=== PATIENT | male | born 1925 | race Caucasian/White ===

== ENCOUNTER → 2016-07-10 | Outpatient (CLI) | payer OTHER ==
[2016-07-10 11:30] LABS: ALBUMIN 3.7 GM/DL (3.2-5.2); ALBUMIN/GLOBULIN RATIO 1.16 (1.00-1.93); BILIRUBIN,TOTAL 0.7 MG/DL (0.2-1.0); CALCIUM LEVEL 8.9 MG/DL (8.8-10.2); CREATININE FOR GFR 1.37 MG/DL (0.70-1.30); GLOMERULAR FILTRATION RATE 52.2 (>35); POTASSIUM SERUM 4.3 MEQ/L (3.5-5.1); TOTAL PROTEIN 6.9 GM/DL (6.4-8.2)
[2016-07-10 11:33] LABS: BASO % 0.3 % (0.0-1.0); EOS # 0.1 K/mm3 (0.0-0.50); EOS % 1.6 % (0.0-3.0); LARGE UNSTAINED CELL # 0.1 K/mm3 (0.0-0.4); LARGE UNSTAINED CELL % 2.2 % (0.0-4.0); LYMPH # 1.1 K/mm3 (1.5-4.5); LYMPH % 26.2 % (24.0-44.0); MEAN CORPUSCULAR HEMOGLOBIN 29.4 pg (27.0-33.0); MEAN CORPUSCULAR HGB CONC 31.3 g/dl (32.0-36.5); MEAN CORPUSCULAR VOLUME 94.1 fl (80.0-96.0); MONO # 0.3 K/mm3 (0.0-0.8); MONO % 6.8 % (0.0-5.0); NEUTROPHILS # 2.6 K/mm3 (1.8-7.7); NEUTROPHILS % 62.9 % (36.0-66.0); PLATELET COUNT, AUTOMATED 172 k/mm3 (150-450); RED CELL DISTRIBUTION WIDTH 13.6 % (11.5-14.5); WHITE BLOOD COUNT 4.2 K/mm3 (4.0-10.0)
== END ==
LOC: M WUC 08:47
PROVIDERS: ATTEND Nurse Practitioner Family
DX: N18.9 Chronic kidney disease, unspecified (principal); D63.1 Anemia in chronic kidney disease; Z23 Encounter for immunization

== ENCOUNTER 2016-08-13 17:21 | Observation (INO) | payer OTHER ==
[~2016-08-13] VITALS: Ht 170.2 cm; Wt 77.2 kg
[2016-08-13] MEDS ORDERED: PRAD150C PO (17:39)
[2016-08-13] MEDS ORDERED: NITR0.4D TD (17:39)
[2016-08-13] MEDS ORDERED: ZOCO40TA PO (17:39)
[2016-08-13] MEDS ORDERED: DIOV80TA3 PO (17:39)
[2016-08-13] MEDS ORDERED: ATEN50TA2 PO (17:39)
[2016-08-13] MEDS ORDERED: OMEP40CA2 PO (17:39)
[2016-08-13] MEDS ORDERED: VITA200015 PO (17:39)
[2016-08-13] MEDS ORDERED: OSTETAB3 PO (17:39)
[2016-08-13] MEDS ORDERED: Iron (17:39)
[2016-08-13] MEDS ORDERED: NITR4TASL SL (17:39)
[2016-08-13] MEDS ORDERED: MULT1CHW39 PO (17:39)
[2016-08-13 18:28] LABS: BASO % 0.2 % (0.0-1.0); EOS # 0.1 K/mm3 (0.0-0.50); EOS % 1.1 % (0.0-3.0); LARGE UNSTAINED CELL # 0.1 K/mm3 (0.0-0.4); LARGE UNSTAINED CELL % 1.2 % (0.0-4.0); LYMPH # 1.3 K/mm3 (1.5-4.5); LYMPH % 17.6 % (24.0-44.0); MEAN CORPUSCULAR HEMOGLOBIN 29.8 pg (27.0-33.0); MEAN CORPUSCULAR HGB CONC 31.1 g/dl (32.0-36.5); MEAN CORPUSCULAR VOLUME 95.8 fl (80.0-96.0); MONO # 0.3 K/mm3 (0.0-0.8); MONO % 4.3 % (0.0-5.0); NEUTROPHILS # 5.3 K/mm3 (1.8-7.7); NEUTROPHILS % 75.6 % (36.0-66.0); PLATELET COUNT, AUTOMATED 201 k/mm3 (150-450); RED CELL DISTRIBUTION WIDTH 14.2 % (11.5-14.5)
[2016-08-13 19:13] LABS: ALBUMIN 3.7 GM/DL (3.2-5.2); ALBUMIN/GLOBULIN RATIO 0.95 (1.00-1.93); BILIRUBIN,DIRECT 0.1 MG/DL (0.0-0.2); BILIRUBIN,TOTAL 0.4 MG/DL (0.2-1.0); CALCIUM LEVEL 8.8 MG/DL (8.8-10.2); CREATININE FOR GFR 1.3 MG/DL (0.70-1.30); GLOMERULAR FILTRATION RATE 55.5 (>35); POTASSIUM SERUM 3.9 MEQ/L (3.5-5.1); TOTAL PROTEIN 7.6 GM/DL (6.4-8.2)
[2016-08-13 20:25] LABS: INR 1.31
[2016-08-13] MEDS ORDERED: FERR325T PO (21:56)
[2016-08-13] MEDS ORDERED: VITMTA PO (21:56)
[2016-08-13] MEDS ORDERED: ACETAMINOPHEN TAB 650MG DOSE (2X325MG) PO PRN (22:00)
--- NOTE | 2016-08-13 22:01 | ER ---
DATE OF CONSULTATION: 08/13/2016 BRIEF HISTORY OF PRESENT ILLNESS: The patient is an 89-year-old frail male who has had some inguinal hernias for quite awhile now, was seen by Dr. Petersen years ago concerning these inguinal hernias and did not have operative intervention because of multiple medical issues, specifically cardiac issues. He has had some recent anemia and with this anemia, was started on iron, noticed that he became much more constipated lately and today had some significant constipation and became nauseated, had some dry heaves and had some pain in the suprapubic area. He has not had a bowel movement today. He typically has some intermittent diarrhea at times, intermittent constipation issues and "not very regulated." His past medical history is significant for a history of hypertension, history of cardiac bypass, history of cholecystectomy, history of myocardial infarction, history of gastroesophageal reflux disease, history of osteoarthritis of his knee, history of bilateral inguinal hernias, history of heart catheterization, history of cataracts. Medications include: - atenolol - vitamin D - Pradaxa - multivitamin - nitroglycerin - Nitro-Dur - omeprazole - Osteo Bi-Flex - simvastatin - valsartan - iron PHYSICAL EXAMINATION: Reveals an 89-year-old frail male who looks stated age. HEENT: Unremarkable. NECK: Supple without adenopathy. LUNGS: Clear to auscultation with a few crackles posteriorly at the bases. HEART: Regular with multiple irregular beats. ABDOMEN: Soft, nondistended, nontender. He does have a very large right inguinal hernia that I was able to reduce. After reducing it, he stated that his abdominal pain was much better, his pressure in his abdomen was much better. This was not strangulated. I am not convinced it was incarcerated per se but definitely symptomatic. His left inguinal area has stool filled colon on his CT scan, and I am able to reduce the majority of this. It does not cause him any significant pain, but it is somewhat difficult to reduce because of the amount of stool that is in the colon itself. IMPRESSION/PLAN: The patient has bilateral inguinal hernias. I anticipate his right inguinal hernia was partially obstructive, and it may have been secondary to some constipation associated with his iron. Given this, constipation probably caused some mild abdominal distention which made his right inguinal area more symptomatic. In any case, from my standpoint, he is asymptomatic here in the emergency room. He can be started on a clear liquid, advance his diet as tolerated. However, he is quite a frail individual, and I am wondering if he would be better off to be observed by the medical service overnight. If he has some improvement in the morning, then the big question for us at this time is his operative risk/his comorbidities and whether he is an individual that should have his stools softened as best as possible and discharged home with only operative intervention in an emergent situation or more semi-elective operative intervention during this hospitalization. Unfortunately, because of his anticoagulation, he will need to defer operative intervention for several days prior to intervention. He understands our current dilemma, and I have discussed our current issues with the emergency room, who will discuss it with the hospitalist.
[2016-08-13] MEDS: DABIGATRAN ETEXILATE 75 MG CAP (PRADAXA) PO SCH (23:07)
--- NOTE | 2016-08-13 23:50 | HPE ---
DATE OF ADMISSION: 08/13/2016 CHIEF COMPLAINT: Right lower quadrant pain with nausea. This is an 89-year-old male who states that he began experiencing right lower quadrant pain today. It continued to get worse throughout the day. It was making him nauseated. He came to the emergency room. Upon arrival, blood pressure was 112/81, pulse was 53, respirations were 18, temperature was 96.3. Laboratory studies were done. White count was 7, hemoglobin and hematocrit were 12 and 38.7, platelets were 201. Electrolytes were normal. BUN was 19, creatinine was 1.3. Lipase was 232. PT was 16.4, INR was 1.3. CT of the abdomen and pelvis was done, which showed large bilateral inguinal hernias, both containing bowel; however, the right-sided hernia appeared to cause a mild small-bowel obstruction. No inflammatory changes seen with either hernia, however. No evidence of hydronephrosis or nephrolithiasis. Chronic atrophy of the right kidney. Several large simple cysts in the left kidney. Borderline abdominal aortic aneurysm. Emergency room consulted with Dr. Dodge, who saw the patient, reduced the hernia. He had immediate relief of his pain and is feeling well. Recommendation is to monitor patient overnight, make sure he is able to eat, move his bowels, and if remains stable can be discharged. Patient will be admitted to observation status. PRIMARY CARE PROVIDER: [facility], Dr. Norman. RESEARCH PHYSIOLOGIST: Dr. Martínez. SOCIAL HISTORY: He is . He drinks one or two Manhattans per day. He does not smoke cigarettes. He does not use recreational drugs. PAST MEDICAL HISTORY: 1. Coronary artery disease, status post coronary artery bypass graft (CABG) March 1995. 2. Percutaneous transluminal coronary angioplasty (PTCA) November 2001. 3. Atrial fibrillation. 4. Gastroesophageal reflux disease (GERD). 5. Benign prostatic hypertrophy. 6. Hyperlipidemia. 7. Hypertension. 8. Last echo: Mild left ventricular (LV) dysfunction, ejection fraction 45%. 9. Vitamin D deficiency. 10. Chronic kidney disease, stage III. PAST SURGICAL HISTORY: 1. Cholecystectomy in 1991. 2. CABG times four in 1994. 3. PTCA stent in 2001. 4. Esophagogastroduodenoscopy/colonoscopy. Normal with diverticulosis January 2006. 5. Left cataract surgery in May 2013. 6. Right cataract surgery in June 2013. ALLERGIES: ALTACE caused cough. IMDUR caused gastrointestinal (GI) side effects. FAMILY HISTORY: Noncontributory. REVIEW OF SYSTEMS: No complaint of headache. No blurred or double vision. No fever. No chills. No tinnitus. No hoarseness. No difficulty swallowing. No lightheadedness. No vertigo. CARDIOVASCULAR: No complaints of chest pain, shortness of breath, palpitations, or edema. RESPIRATORY: No chronic cough. No sputum production. No hemoptysis. No orthopnea. No wheezes. GASTROINTESTINAL: He has been nauseated, which is resolved with reduction of her hernia. Denies any hematochezia or melena. Abdominal pain prior to reduction of the hernia. Denies any hematochezia, melena, or hematemesis. GENITOURINARY: No hematuria, dysuria, or frequency. MUSCULOSKELETAL: No joint redness or swelling. ENDOCRINE: No polyuria, polydipsia, polyphagia. HEMATOLOGICAL: No history of anemia. NEUROLOGIC: No history of seizures. No paresthesias or paralysis. PSYCHOLOGICAL: No suicidal ideations. PHYSICAL EXAMINATION: An 89-year-old cooperative male. Blood pressure 150/76, pulse 62, respirations 18, temperature 96.8. Patient is alert and oriented times three. Pupils equal and reactive to light. Extraocular movements (EOMs) intact. Corneae and sclerae clear. Conjunctivae normal. No facial asymmetry. Pharynx, tongue, and gums pink and moist. Tongue is midline. Neck is supple without lymphadenopathy. No thyromegaly. No goiter. Carotids 2+ without bruit. Chest clear to auscultation without wheezing or retraction. Heart is regular. Abdomen soft, nontender. No masses, pulsations, or bruits. No organomegaly. Bowel sounds positive. Genitourinary/rectal not done. Extremities show equal strength. Full range of motion. No cyanosis, clubbing, or edema. Peripheral pulses equal and palpable bilaterally. Skin is warm and dry. IMPRESSION AND PLAN: 1. Recurrent hernias with left obstruction, reduced in the emergency room (ER) by Dr. Dodge. 2. History of hypertension. 3. History of gastroesophageal reflux disease (GERD). 4. History of coronary artery disease. 5. History of atrial fibrillation, on Pradaxa. 6. History of hyperlipidemia. Admit to observation status per recommendation of Dr. Dodge. Ensure the patient can eat and move his bowels. No recurrence. Will continue home medications without change. Patient will be admitted to observation status to the medical floor. Will start on clear liquid diet and advance as tolerated, as recommended by Dr. Dodge. Will start Colace for stool softener. Patient will be admitted to the medical floor.
[2016-08-14 00:56] VITALS: BP 165/77
--- NOTE | 2016-08-14 03:10 | REPUSA ---
CT of the abdomen and pelvis without contrast Clinical statement: Pain. Technique: Multiple axial CT images were obtained from the base of the lungs to the floor of the pelv is utilizing 5 mm axial slices without administration of contrast. Coronal and sagittal reconstructio ns were also obtained. No comparison is available. Findings: Chest: The visualized lung bases are clear. Abdomen: There is a large low attenuation lesion in the lateral left kidney measuring 3.5 x 3.0 cm. A second low attenuation lesion in the medial left kidney measures 2.7 x 2.0 cm. The right kidney is a trophic. There is no evidence of hydronephrosis or nephrolithiasis. The liver, spleen, pancreas, and adrenal glands are unremarkable. The infrarenal aorta is dilated, measuring 3.0 x 3.0 cm, with minima l atherosclerotic calcifications. There is no abdominal lymphadenopathy or ascites. Pelvis: There are large bilateral inguinal hernias. The left inguinal hernia contains nonobstructed loops of colon. The right inguinal hernia contains loops of both the large and small bowel. The small bowel loops appear to be slightly obstructed, with proximal fluid distention of the small bowel. The distal small bowel loops appear relatively collapsed. Noevidence of inflammation or incarceration is identified at this time however. The urinary bladder is within normal limits. There is no pelvic lym phadenopathy or ascites. The other pelvic structures appear unremarkable. Bones: There are no suspicious osseous abnormalities seen. There is mild degenerative disc disease at L2/L3. Impression: 1. Large bilateral inguinal hernias, both containing bowel.However, the right-sided hernia appears t o cause a mild small bowel obstruction. No inflammatory changes are seen at this time within either h ernia however. 2. No evidence of hydronephrosis or nephrolithiasis. Chronic atrophy of the right kidney. Several lar ge simple cyst in the left kidney. 3. Borderline abdominal aortic aneurysm. ER was called regarding this finding at 7:43 PM on 08/13/2016.
[2016-08-14 06:00] VITALS: BP 156/70
[2016-08-14 07:18] LABS: BASO % 0.1 % (0.0-1.0); EOS # 0.1 K/mm3 (0.0-0.50); EOS % 1.7 % (0.0-3.0); LARGE UNSTAINED CELL # 0.2 K/mm3 (0.0-0.4); LARGE UNSTAINED CELL % 3.1 % (0.0-4.0); LYMPH # 1.4 K/mm3 (1.5-4.5); LYMPH % 25.3 % (24.0-44.0); MEAN CORPUSCULAR HEMOGLOBIN 30.8 pg (27.0-33.0); MEAN CORPUSCULAR HGB CONC 31.7 g/dl (32.0-36.5); MONO # 0.5 K/mm3 (0.0-0.8); MONO % 8.3 % (0.0-5.0); NEUTROPHILS # 3.4 K/mm3 (1.8-7.7); NEUTROPHILS % 61.6 % (36.0-66.0); PLATELET COUNT, AUTOMATED 175 k/mm3 (150-450); RED CELL DISTRIBUTION WIDTH 14.2 % (11.5-14.5); WHITE BLOOD COUNT 5.5 K/mm3 (4.0-10.0)
[2016-08-14 07:42] LABS: ALBUMIN 3.1 GM/DL (3.2-5.2); ALBUMIN/GLOBULIN RATIO 0.94 (1.00-1.93); BILIRUBIN,TOTAL 0.6 MG/DL (0.2-1.0); CALCIUM LEVEL 8.8 MG/DL (8.8-10.2); CREATININE FOR GFR 1.25 MG/DL (0.70-1.30); POTASSIUM SERUM 4.2 MEQ/L (3.5-5.1); TOTAL PROTEIN 6.4 GM/DL (6.4-8.2)
[2016-08-14] MEDS: VITAMIN D 1,000 INTERNATIONAL UNITS TABLET PO SCH (09:00)
[2016-08-14] MEDS: DOCUSATE SODIUM 100 MG CAP PO SCH ×2 (09:00→21:38)
[2016-08-14] MEDS: OMEPRAZOLE 20 MG CAP PO SCH (09:00)
[2016-08-14] MEDS: SIMVASTATIN 40 MG TAB PO SCH (09:00)
[2016-08-14] MEDS: DABIGATRAN ETEXILATE 75 MG CAP (PRADAXA) PO SCH ×2 (09:01→21:38)
[2016-08-14] MEDS: VALSARTAN 80 MG TAB (DIOVAN) PO SCH (09:01)
[2016-08-14] MEDS: ATENOLOL 50 MG TAB PO SCH (09:03)
[2016-08-14] MEDS: NITROGLYCERIN 0.4 MG/HR PATCH TD SCH (09:03)
--- NOTE | 2016-08-14 11:49 | IPNPDOC ---
Subjective Date Seen The patient was seen on 08/14/16. Subjective Chief Complaint/HPI The patient is a 89-year-old male admitted with a reason for visit of Hernia, Inguinal,Bilateral Recurrent, Obstruction. Events since last encounter Pt this morning is feeling well. He has moved his bowels mpt times. denies abd pain. Feels hungry. He is ambulating around the room without difficulty. He tolerated some clears for breakfast but states that he didn't really drink much as he wasn't interested in what was offered. General: Denies: Fatigue Constitutional: Denies: Chills, Fever Pulmonary: Denies: Dyspnea, Cough Cardiovascular: Denies: Chest Pain, Palpitations Gastrointestinal: Denies: Nausea, Vomiting, Abdominal Pain Musculoskeletal: Denies: Neck Pain Neurological: Denies: Weakness Psych: Reports: Mood Normal Objective Physical Examination General Exam: Positive: Alert, No Acute Distress ENT Exam: Positive: Mucous membr. moist/pink Chest Exam: Positive: Clear to auscultation, Normal air movement Heart Exam: Positive: Rate Normal, Normal S1, Normal S2 Abdomen Exam: Positive: Normal bowel sounds, Soft, Negative: Tenderness Extremity Exam: Negative: Edema (trace BLE edema) Assessment /Plan Problems (1) Hernia, inguinal, bilateral recurrent, with obstruction Status: Acute Response to Treatment: Improving Problem Specific Plan: Monitor Clinically Problem Text: 08/13 qhs manually reduced in the ER by Dr Dodge. He doesn't feel the pt is a good surgical candidate and that this would be en elective procedure. The pt isn't eager to proceed with any intervention either. He is now without pain, and moving his bowels freely. Bowel care has been started. Advancing diet, if tolerated ok to be d/c. (2) A-fib Status: Chronic Response to Treatment: Stable Problem Specific Plan: Monitor Clinically Problem Text: Cont with Pradaxa, rate controlled with Atenolol. (3) Iron (Fe) deficiency anemia Status: Chronic Response to Treatment: Stable Problem Specific Plan: Monitor Clinically Problem Text: pt notes that his constipation and abd pain started shortly after starting to take Iron. His bowel movements became less frequent. Counseled on importance of bowel care to prevent constipation/obstipation, now moving his bowels freely this morning. He has been started on Colace 100 mg BID Plan/VTE VTE Prophylaxis Ordered?: Yes VS, I&O, 24H, Fishbonroman Vital Signs/I&O Vital Signs Date Time Temp Pulse Resp B/P (MAP) Pulse Ox O2 Delivery O2 Flow Rate FiO2 08/14/16 09:03 63 124/61 08/14/16 06:00 98.6 20 96 08/14/16 00:56 Room Air I&O- Last 24 Hours up to 6 AM 08/14/16 06:00 Intake Total 120 ml Output Total 250 ml Balance -130 ml Laboratory Data 24H LABS Laboratory Tests 2 08/13/16 18:14: White Blood Count 7.0, Red Blood Count 4.04L, Hemoglobin 12.0L, Hematocrit 38.7L , Mean Corpuscular Volume 95.8, Mean Corpuscular Hemoglobin 29.8, Mean Corpuscular Hemoglobin Concent 31.1L, Red Cell Distribution Width 14.2, Platelet Count 201, Neutrophils (%) (Auto) 75.6H, Lymphocytes (%) (Auto) 17.6L, Monocytes (%) (Auto) 4.3, Eosinophils (%) (Auto) 1.1, Basophils (%) (Auto) 0.2, Neutrophils # (Auto) 5.3, Lymphocytes # (Auto) 1.3L, Monocytes # (Auto) 0.3, Eosinophils # (Auto) 0.1, Basophils # (Auto) 0.0, Large Unclassified Cells % 1.2 , Large Unclassified Cells # 0.1, Prothrombin Time 16.4H, Prothromb Time International Ratio 1.31, Anion Gap 4L, Glomerular Filtration Rate 55.5, Calcium Level 8.8, Aspartate Amino Transf (AST/SGOT) 19, Alanine Aminotransferase (ALT/SGPT) 12, Alkaline Phosphatase 59, Total Bilirubin 0.4, Direct Bilirubin 0.1, Total Protein 7.6, Albumin 3.7, Albumin/Globulin Ratio 0.95L, Lipase 232 08/14/16 06:51: White Blood Count 5.5, Red Blood Count 3.55L, Hemoglobin 10.9L, Hematocrit 34.4L , Mean Corpuscular Volume 97.0H, Mean Corpuscular Hemoglobin 30.8, Mean Corpuscular Hemoglobin Concent 31.7L, Red Cell Distribution Width 14.2, Platelet Count 175, Neutrophils (%) (Auto) 61.6, Lymphocytes (%) (Auto) 25.3, Monocytes (%) (Auto) 8.3H, Eosinophils (%) (Auto) 1.7, Basophils (%) (Auto) 0.1 , Neutrophils # (Auto) 3.4, Lymphocytes # (Auto) 1.4L, Monocytes # (Auto) 0.5, Eosinophils # (Auto) 0.1, Basophils # (Auto) 0.0, Large Unclassified Cells % 3.1 , Large Unclassified Cells # 0.2, Anion Gap 7L, Glomerular Filtration Rate 58.0 , Calcium Level 8.8, Aspartate Amino Transf (AST/SGOT) 18, Alanine Aminotransferase (ALT/SGPT) 9L, Alkaline Phosphatase 51, Total Bilirubin 0.6, Total Protein 6.4, Albumin 3.1L, Albumin/Globulin Ratio 0.94L, Blood Urea Nitrogen 16, Creatinine 1.25, Sodium Level 142, Potassium Level 4.2, Chloride Level 109H, Carbon Dioxide Level 26 CBC/BMP Laboratory Tests 08/13/16 18:14 Red Blood Count 4.04 L, Mean Corpuscular Volume 95.8, Mean Corpuscular Hemoglobin 29.8, Mean Corpuscular Hemoglobin Concent 31.1 L, Red Cell Distribution Width 14.2, Neutrophils (%) (Auto) 75.6 H, Lymphocytes (%) (Auto) 17.6 L, Monocytes (%) (Auto) 4.3, Eosinophils (%) (Auto) 1.1, Basophils (%) ( Auto) 0.2, Neutrophils # (Auto) 5.3, Lymphocytes # (Auto) 1.3 L, Monocytes # ( Auto) 0.3, Eosinophils # (Auto) 0.1, Basophils # (Auto) 0.0 08/14/16 06:51 Red Blood Count 3.55 L, Mean Corpuscular Volume 97.0 H, Mean Corpuscular Hemoglobin 30.8, Mean Corpuscular Hemoglobin Concent 31.7 L, Red Cell Distribution Width 14.2, Neutrophils (%) (Auto) 61.6, Lymphocytes (%) (Auto) 25.3, Monocytes (%) (Auto) 8.3 H, Eosinophils (%) (Auto) 1.7, Basophils (%) ( Auto) 0.1, Neutrophils # (Auto) 3.4, Lymphocytes # (Auto) 1.4 L, Monocytes # ( Auto) 0.5, Eosinophils # (Auto) 0.1, Basophils # (Auto) 0.0, Calcium Level 8.8, Aspartate Amino Transf (AST/SGOT) 18, Alanine Aminotransferase (ALT/SGPT) 9 L, Alkaline Phosphatase 51, Total Bilirubin 0.6, Total Protein 6.4, Albumin 3.1 L REBEKA BRUCE PA-C August 14, 2016 11:49 Jesus Manuel Valdez M.D. August 14, 2016 15:34
[2016-08-14 14:00] VITALS: BP 122/60
--- NOTE | 2016-08-14 20:18 | REP ---
KUB ABDOMEN AND PELVIS: Two KUB films of abdomen and pelvis performed. There are a few mildly dilated small bowel loops in the left abdomen. Mild air is scattered throughout the colon. Metallic clips in are seen in the right upper quadrant. There are degenerative changes of the spine. IMPRESSION: A few mildly dilated small bowel loops in the left abdomen. Signed by Yahir Magdaleno MD 08/15/2016 04:43 P
[2016-08-14 22:00] VITALS: BP 105/54
[2016-08-15 06:00] VITALS: BP 136/63
[2016-08-15] MEDS: OMEPRAZOLE 20 MG CAP PO SCH (09:28)
[2016-08-15] MEDS: ATENOLOL 50 MG TAB PO SCH (09:28)
[2016-08-15] MEDS: DOCUSATE SODIUM 100 MG CAP PO SCH (09:28)
[2016-08-15] MEDS: DABIGATRAN ETEXILATE 75 MG CAP (PRADAXA) PO SCH (09:28)
[2016-08-15] MEDS: VITAMIN D 1,000 INTERNATIONAL UNITS TABLET PO SCH (09:29)
[2016-08-15] MEDS: SIMVASTATIN 40 MG TAB PO SCH (09:29)
[2016-08-15] MEDS: VALSARTAN 80 MG TAB (DIOVAN) PO SCH (09:29)
[2016-08-15 09:30] VITALS: BP 136/63
[2016-08-15] MEDS: NITROGLYCERIN 0.4 MG/HR PATCH TD SCH (09:30)
--- NOTE | 2016-08-15 10:13 | IPNPDOC ---
Subjective Date Seen The patient was seen on 08/15/16. Subjective Chief Complaint/HPI The patient is a 89-year-old male admitted with a reason for visit of Hernia, Inguinal,Bilateral Recurrent, Obstruction. Events since last encounter Feels well. toelrating regular diet without n/v or abd pain. no BM yet today Constitutional: Denies: Chills, Fever Pulmonary: Denies: Dyspnea, Cough Cardiovascular: Denies: Chest Pain, Palpitations, Orthopnea Gastrointestinal: Denies: Nausea, Vomiting, Abdominal Pain, Diarrhea, Constipation Objective Physical Examination General Exam: Positive: Alert, No Acute Distress ENT Exam: Positive: Mucous membr. moist/pink Chest Exam: Positive: Clear to auscultation, Normal air movement Heart Exam: Positive: Rate Normal, Normal S1, Normal S2 Abdomen Exam: Positive: Normal bowel sounds, Soft, Negative: Tenderness Extremity Exam: Positive: Edema (trace BLE edema) Assessment /Plan Problems (1) Hernia, inguinal, bilateral recurrent, with obstruction Status: Acute Response to Treatment: Improving Problem Specific Plan: Monitor Clinically Problem Text: 08/15 - Dr. Dodge would like to optimize him for surgery next week, however patient not very anxious to get this done. Dr. Dodge feels that the likelihood of re-obstruction is high. Plan would be to hold Pradaxa x 5 days in anticipation for surgery. Continue Colace. 08/13 qhs manually reduced in the ER by Dr Dodge. He doesn't feel the pt is a good surgical candidate and that this would be en elective procedure. The pt isn't eager to proceed with any intervention either. He is now without pain, and moving his bowels freely. Bowel care has been started. Advancing diet, if tolerated ok to be d/c. (2) A-fib Status: Chronic Response to Treatment: Stable Problem Specific Plan: Monitor Clinically Problem Text: 08/15/ Hold Pradaxa if plan is for surgery rate controlled with Atenolol. (3) Iron (Fe) deficiency anemia Status: Chronic Response to Treatment: Stable Problem Specific Plan: Monitor Clinically Problem Text: 08/15 - pt notes that his constipation and abd pain started shortly after starting to take Iron. His bowel movements became less frequent. Counseled on importance of bowel care to prevent constipation/obstipation, now moving his bowels freely this morning. He has been started on Colace 100 mg BID Continue to hold iron Monitor Hgb Plan/VTE VTE Prophylaxis Ordered?: Yes VS, I&O, 24H, Fishbone Vital Signs/I&O Vital Signs Date Time Temp Pulse Resp B/P (MAP) Pulse Ox O2 Delivery O2 Flow Rate FiO2 08/15/16 09:30 136/63 08/15/16 09:28 63 08/15/16 06:00 99.0 20 95 08/14/16 14:00 Room Air I&O- Last 24 Hours up to 6 AM 08/15/16 06:00 Intake Total 2380 ml Output Total 625 ml Balance 1755 ml ANN RODRIGUEZ PA-C August 15, 2016 10:13
[2016-08-15 14:00] VITALS: BP 125/64
--- NOTE | 2016-08-15 15:02 | DSES ---
DATE OF ADMISSION: 08/13/2016 DATE OF DISCHARGE: 08/15/2016 PRINCIPAL DIAGNOSIS: Bilateral inguinal hernias, recurrent, with obstruction. SECONDARY DIAGNOSES: 1. Atrial fibrillation. 2. Iron deficiency anemia. 3. Constipation. HISTORY: Robin Constantino was admitted with bilateral inguinal hernia pain from large inguinal hernias, reduced in the emergency room by Dr. Dodge. Details are in the history and physical from admission. HOSPITAL COURSE: After the hernias were reduced, the abdominal pain resolved. He is on Pradaxa for anticoagulation to prevent thromboembolism from atrial fibrillation. Case was discussed with Dr. Dodge. Feels that if the patient does not have the hernias repaired, he is at high risk of recurrence and possible strangulation; however, it would need to be done with spinal anesthesia via open approach and his surgical risk is elevated. I discussed at length with the patient and his family today. He does not want anything done during this hospitalization. He wants to go home and think about his options. He understands to return to the emergency room for persistent hernia pain, vomiting, abdominal distention. He has agreed to see Dr. Dodge to talk about surgical options in his office. He understands that he would have to hold his Pradaxa for 3 days prior to the procedure. His risk of thromboembolism with brief interruption of Pradaxa is low. He is discharged home on the same medicines he was taking prior to admission: - atenolol 50 mg daily - vitamin D 2000 units daily - Pradaxa 150 mg twice a day - Nitrostat as needed - omeprazole 40 mg daily - Osteo Bi-Flex - simvastatin 40 mg daily - valsartan 80 mg daily His iron has been held due to constipation. He is to followup with Aleksandra Chowdhury, POLLY, or me in the [place] office in a week. Activity as tolerated. [id number] diet. His labs are part of the medical record and will not be repeated here. Edited: [facility] 08/16/2016 0949
== END 2016-08-15 15:12 | disposition home or self-care (01) ==
LOC: M ED 19:07 → M ED INP 21:50 → M MSPAV 08-14 00:55
PROVIDERS: ADMIT Family Medicine; ATTEND Family Medicine
DX: K40.01 Bilateral inguinal hernia, with obstruction, without gangrene, recurrent (principal); I48.91 Unspecified atrial fibrillation; D50.9 Iron deficiency anemia, unspecified; K59.00 Constipation, unspecified; R11.0 Nausea; R10.31 Right lower quadrant pain; I71.4 Abdominal aortic aneurysm, without rupture; N28.1 Cyst of kidney, acquired; I12.9 Hypertensive chronic kidney disease with stage 1 through stage 4 chronic kidney disease, or unspecified chronic kidney disease; I25.10 Atherosclerotic heart disease of native coronary artery without angina pectoris; I25.2 Old myocardial infarction; K21.9 Gastro-esophageal reflux disease without esophagitis; N40.0 Benign prostatic hyperplasia without lower urinary tract symptoms; N18.3 Chronic kidney disease, stage 3 (moderate); E78.5 Hyperlipidemia, unspecified; M17.10 Unilateral primary osteoarthritis, unspecified knee; Z79.899 Other long term (current) drug therapy; Z79.01 Long term (current) use of anticoagulants; Z98.61 Coronary angioplasty status; Z95.1 Presence of aortocoronary bypass graft; Z88.8 Allergy status to other drugs, medicaments and biological substances; Z87.891 Personal history of nicotine dependence
CPT/HCPCS: 36415; 74000; 74176; 80048; 80053; 80076; 83690; 85025; 85610; 93041; 97161; 99285; G0378

== ENCOUNTER 2016-08-21 12:05 | Inpatient (IN) | payer OTHER ==
[~2016-08-21] VITALS: Ht 170.2 cm; Wt 72.6 kg
[~2016-08-21 12:05] MED LIST: ATEN50TA2 PO; DIOV80TA3 PO; FERR325T PO; Iron; MULT1CHW39 PO; NITR0.4D TD; NITR4TASL SL; OMEP40CA2 PO; OSTETAB3 PO; PRAD150C PO; VITA200015 PO; VITMTA PO; ZOCO40TA PO
[2016-08-21] MEDS ORDERED: NS 1,000 ML IV SCH (12:13)
[2016-08-21] MEDS ORDERED: ONDANSETRON 4MG/2ML VIAL (J2405) IV ONE (12:15)
[2016-08-21] MEDS ORDERED: GASTROGRAFIN SOLUTION 30ML PO ONE (12:35)
[2016-08-21] MEDS: MORPHINE 2 MG/ML 1ML SYRINGE IV PRN ×3 (12:44→13:45)
[2016-08-21 12:47] LABS: BASO % 0.3 % (0.0-1.0); EOS # 0.1 K/mm3 (0.0-0.50); EOS % 0.9 % (0.0-3.0); LARGE UNSTAINED CELL # 0.2 K/mm3 (0.0-0.4); LARGE UNSTAINED CELL % 2.6 % (0.0-4.0); LYMPH # 1.6 K/mm3 (1.5-4.5); LYMPH % 19.9 % (24.0-44.0); MEAN CORPUSCULAR HEMOGLOBIN 30.9 pg (27.0-33.0); MEAN CORPUSCULAR HGB CONC 31.4 g/dl (32.0-36.5); MEAN CORPUSCULAR VOLUME 98.6 fl (80.0-96.0); MONO # 0.4 K/mm3 (0.0-0.8); MONO % 4.9 % (0.0-5.0); NEUTROPHILS # 5.7 K/mm3 (1.8-7.7); NEUTROPHILS % 71.4 % (36.0-66.0); PLATELET COUNT, AUTOMATED 220 k/mm3 (150-450); RED CELL DISTRIBUTION WIDTH 13.6 % (11.5-14.5)
[2016-08-21] MEDS ORDERED: GASTROGRAFIN SOLUTION 30ML (Q9963) PO ONE (13:05)
[2016-08-21 13:11] LABS: INR 1.48
[2016-08-21 13:17] LABS: ALBUMIN/GLOBULIN RATIO 1.11 (1.00-1.93); BILIRUBIN,DIRECT 0.2 MG/DL (0.0-0.2); BILIRUBIN,TOTAL 0.5 MG/DL (0.2-1.0); CALCIUM LEVEL 9.1 MG/DL (8.8-10.2); CREATININE FOR GFR 1.42 MG/DL (0.70-1.30); GLOMERULAR FILTRATION RATE 50.1 (>35); POTASSIUM SERUM 4.8 MEQ/L (3.5-5.1); TOTAL PROTEIN 7.6 GM/DL (6.4-8.2)
[2016-08-21] MEDS ORDERED: MIRA33504 PO (13:49)
[2016-08-21] MEDS ORDERED: SENN8.6T54 PO (13:49)
[2016-08-21] MEDS ORDERED: MORPHINE 4 MG/ML 1ML SYRINGE IV ONE ×2 (14:00→15:30)
[2016-08-21] MEDS: LR 1,000 ML IV SCH (16:39)
[2016-08-21] MEDS ORDERED: NORCO, ANEXSIA 5/325MG TABLET (HYDROcodone/ACETAMINOPHEN) PO PRN (16:45)
[2016-08-21] MEDS ORDERED: MORPHINE 4 MG/ML 1ML SYRINGE IV PRN (16:45)
--- NOTE | 2016-08-21 16:45 | REP ---
CT ABDOMEN AND PELVIS: REASON: History of hernia. Rule out intestinal obstruction. COMPARISON: 08/13/2016 also without contrast. The lung bases are unchanged. There are no pleural or pericardial effusions. There is no change in appearance of the solid intraabdominal organs, pancreas, adrenals glands, or kidneys. There is no change in appearance of the abdominal aorta. There is atherosclerotic change and a 3 cm sized infrarenal abdominal aortic aneurysm, difficult to evaluate without intravenous contrast. There is also unchanged bilateral common iliac arterial ectasia. There is no free fluid or free air in the abdomen. There are multiple mildly dilated gas and fluid filled small bowel loops in the abdomen and upper pelvis. There is a large right inguinal hernia through which mesentery and multiple small bowel loops reside along with a large portion of sigmoid colon. The appearance of this has changed somewhat from the prior exam with today the examination showing additional small bowel loops which are dilated with air fluid levels. There is a smaller left inguinal hernia which also contains large bowel and it is completely unchanged from the prior exam. There is a small amount of fluid in the right inguinal hernial sac, also unchanged. There is no change in the osseous structures. IMPRESSION: 1. Large bilateral inguinal hernias as described above with resultant ileus/partial small bowel obstruction. It can not be stated whether or not there is inguinal hernia incarceration or early strangulation since no intravenous contrast was administered. Surgical consultation is recommended. 2. Small infrarenal abdominal aortic aneurysm. 3. Other findings as described above. Signed by Bakari Alba DO 08/22/2016 10:20 A
[2016-08-21 18:01] VITALS: BP 175/77
--- NOTE | 2016-08-21 19:28 | REP ---
PORTABLE CHEST: AP portable view of the chest is performed. COMPARISON: 04/14/2015 There is cardiomegaly and venous hypertension with mildly accentuated interstitial markings. No infiltrates are seen. Nasogastric tube is seen entering the stomach but the distal end curls back upward into the distal end of the esophagus. The distal tip of the nasogastric tube is in the distal esophagus. Signed by Yahir Magdaleno MD 08/22/2016 04:52 P
[2016-08-21] MEDS: **NOTE PATIENT COMMENT** MISC XX SCH (21:00)
[2016-08-21] MEDS: HEPARIN SOD (PORCINE) 5000 UNITS/ML VIAL SC SCH (21:33)
[2016-08-21 22:00] VITALS: BP 132/66
[2016-08-21] MEDS ORDERED: NITROGLYCERIN 0.4 MG SUBL TABLET SL PRN (22:00)
[2016-08-21] MEDS: SENOKOT S TAB PO SCH (22:03)
[2016-08-21] MEDS: ACETAMINOPHEN TAB 650MG DOSE (2X325MG) PO PRN (22:03)
[2016-08-22] MEDS: ACETAMINOPHEN TAB 650MG DOSE (2X325MG) PO PRN ×3 (02:40→20:01)
[2016-08-22] MEDS: LR 1,000 ML IV SCH ×2 (05:25→17:34)
[2016-08-22 05:58] LABS: BASO % 0.3 % (0.0-1.0); EOS % 0.6 % (0.0-3.0); LARGE UNSTAINED CELL # 0.1 K/mm3 (0.0-0.4); LARGE UNSTAINED CELL % 1.7 % (0.0-4.0); LYMPH # 1.6 K/mm3 (1.5-4.5); LYMPH % 21.6 % (24.0-44.0); MEAN CORPUSCULAR HEMOGLOBIN 30.7 pg (27.0-33.0); MEAN CORPUSCULAR VOLUME 95.9 fl (80.0-96.0); MONO # 0.5 K/mm3 (0.0-0.8); MONO % 7.3 % (0.0-5.0); NEUTROPHILS # 4.6 K/mm3 (1.8-7.7); NEUTROPHILS % 68.5 % (36.0-66.0); PLATELET COUNT, AUTOMATED 187 k/mm3 (150-450); RED CELL DISTRIBUTION WIDTH 13.7 % (11.5-14.5); WHITE BLOOD COUNT 6.7 K/mm3 (4.0-10.0)
[2016-08-22 06:00] VITALS: BP 140/66
[2016-08-22 06:09] LABS: CALCIUM LEVEL 8.7 MG/DL (8.8-10.2); CREATININE FOR GFR 1.35 MG/DL (0.70-1.30); GLOMERULAR FILTRATION RATE 53.1 (>35); POTASSIUM SERUM 3.9 MEQ/L (3.5-5.1)
[2016-08-22] MEDS: SIMVASTATIN 40 MG TAB PO SCH (08:25)
[2016-08-22] MEDS: SENOKOT S TAB PO SCH ×2 (08:25→20:00)
[2016-08-22] MEDS: ATENOLOL 50 MG TAB PO SCH (08:26)
[2016-08-22] MEDS: VALSARTAN 80 MG TAB (DIOVAN) PO SCH (08:27)
[2016-08-22] MEDS: PANTOPRAZOLE 40MG INJ (PROTONIX) (C9113) IV SCH (08:27)
[2016-08-22] MEDS: NORCO, ANEXSIA 5/325MG TABLET (HYDROcodone/ACETAMINOPHEN) PO PRN (08:27)
[2016-08-22] MEDS: HEPARIN SOD (PORCINE) 5000 UNITS/ML VIAL SC SCH ×2 (08:28→20:00)
[2016-08-22] MEDS: NITROGLYCERIN 0.4 MG/HR PATCH TD SCH (08:28)
[2016-08-22] MEDS ORDERED: cloNIDine HCL 0.1 MG/24 HR PATCH TOP SCH (09:00)
[2016-08-22 09:50] VITALS: BP 168/72
[2016-08-22] MEDS: CHLORASEPTIC SPRAY MT PRN (11:50)
[2016-08-22] MEDS: **NOTE PATIENT COMMENT** MISC XX SCH (20:02)
[2016-08-22 22:00] VITALS: BP 162/77
[2016-08-23] MEDS: NORCO, ANEXSIA 5/325MG TABLET (HYDROcodone/ACETAMINOPHEN) PO PRN ×2 (02:45→08:43)
[2016-08-23] MEDS: LR 1,000 ML IV SCH (05:26)
[2016-08-23 06:00] VITALS: BP 149/77
[2016-08-23 06:31] LABS: BASO % 0.2 % (0.0-1.0); EOS % 0.5 % (0.0-3.0); LARGE UNSTAINED CELL # 0.1 K/mm3 (0.0-0.4); LARGE UNSTAINED CELL % 0.9 % (0.0-4.0); LYMPH % 12.5 % (24.0-44.0); MEAN CORPUSCULAR HEMOGLOBIN 31.6 pg (27.0-33.0); MEAN CORPUSCULAR HGB CONC 32.3 g/dl (32.0-36.5); MONO # 0.5 K/mm3 (0.0-0.8); MONO % 5.8 % (0.0-5.0); NEUTROPHILS # 6.5 K/mm3 (1.8-7.7); NEUTROPHILS % 80.1 % (36.0-66.0); PLATELET COUNT, AUTOMATED 209 k/mm3 (150-450); RED CELL DISTRIBUTION WIDTH 13.2 % (11.5-14.5); WHITE BLOOD COUNT 8.1 K/mm3 (4.0-10.0)
[2016-08-23 07:10] LABS: CALCIUM LEVEL 9.1 MG/DL (8.8-10.2); CREATININE FOR GFR 1.27 MG/DL (0.70-1.30); GLOMERULAR FILTRATION RATE 56.8 (>35); POTASSIUM SERUM 3.8 MEQ/L (3.5-5.1)
[2016-08-23] MEDS ORDERED: D5W/0.45% SODIUM CHLORIDE 1,000 ML IV SCH (08:30)
[2016-08-23] MEDS: D5W/0.45% SODIUM CHLORIDE 1,000 ML IV SCH (08:40)
[2016-08-23] MEDS: VALSARTAN 80 MG TAB (DIOVAN) PO SCH (08:41)
[2016-08-23] MEDS: SENOKOT S TAB PO SCH ×2 (08:41→21:49)
[2016-08-23] MEDS: SIMVASTATIN 40 MG TAB PO SCH (08:42)
[2016-08-23] MEDS: ATENOLOL 50 MG TAB PO SCH (08:42)
[2016-08-23] MEDS: HEPARIN SOD (PORCINE) 5000 UNITS/ML VIAL SC SCH (08:43)
[2016-08-23] MEDS: PANTOPRAZOLE 40MG INJ (PROTONIX) (C9113) IV SCH (08:43)
[2016-08-23] MEDS: NITROGLYCERIN 0.4 MG/HR PATCH TD SCH (08:45)
--- NOTE | 2016-08-23 10:56 | IPN ---
DATE: 08/22/2016 CONSULTATION REPORT FOR: Dr. Mack. REASON FOR CONSULTATION: The patient's small bowel obstruction related to hernias had been scheduled for elective surgery in the near future but developed bowel obstruction and presented to the emergency department (ED) for evaluation. He now has a nasogastric tube in place. Although he does not like the tube, he feels a little better. He has an icepack applied to the right inguinal area. The plan is for surgery on Saturday. Complicating feature is history of atrial fibrillation and the patient has been on anticoagulation with Pradaxa, last dose yesterday morning. The patient's clearance is in the mid 30s. Therefore, he should have a longer than average duration of waiting. The guidance offered in [facility] says that if creatinine clearance is less than 50 then a 3-5 day interval is recommended. According to [facility] Guidelines, this should be 4- 5 days with creatinine clearance in his range. However, if neuraxial anesthesia is to be avoided then the thee-day interval which would be on Saturday might be acceptable. PAST MEDICAL HISTORY: Remarkable for coronary artery bypass graft done in , the patient says. His old chart says 1994. He has a history of atrial fibrillation since 2007. He had an angioplasty in 2001. He has a history of benign prostatic hypertrophy (BPH), hyperlipidemia, hypertension, reduced ejection fraction with 45% ejection fraction demonstrated on previous echocardiogram. He has had a cholecystectomy in 1991, cataract surgeries in 2013. SOCIAL HISTORY: The patient is a former smoker, quit more than 10 years ago. He lives with his , 68 years. ALLERGIES: Include: ALTACE which causes a cough, really a side effect, and IMDUR which cause side effects. CURRENT MEDICATIONS: Include: - Nitrostat 0.4 mg sublingual as needed for chest pain. He denies recent use. - Nitro-Dur 0.4 mg per hour patch 24-hour patch applied in the morning, taken off at bedtime - simvastatin 40 mg daily - atenolol 50 mg daily - Diovan 80 mg daily - Pradaxa 150 mg by mouth twice a day REVIEW OF SYSTEMS: The patient denies trouble with swallowing before the onset of his bowel obstruction, headache, dizziness, change in vision. He denies chest pain with exertion. He is able to walk on level terrain without difficulty. He can go up a flight of stairs without difficulty. He does not do other light housework but is able to engage in these tasks as described without problems. He is not aware of any palpitations or heart racing problems. His appetite has been good before the onset of the bowel obstruction symptoms with no vomiting. No fevers, chills, sweats, or active urinary symptoms. PHYSICAL EXAMINATION: The patient is an elderly, white male but alert, pleasant with nasogastric tube in his right nares and not liking this very much, but otherwise in no distress. Oropharynx shows no oral lesions. No neck mass palpable. No thyroid enlargement. No tracheal shift. LUNGS: Equal expansion without wheezing, rales or rhonchi. HEART: Irregular rhythm. No murmur noted. ABDOMEN: Soft. He has an icepack over the right groin. Bowel sounds are diminished and nasogastric tube noises are present. NEUROLOGIC: He moves all extremities. Speech is clear. He has no focal weakness. Gait was not tested. LABORATORY DATA: So far includes sodium 141, creatinine 1.42 on admission, improved to 1.35 overnight, creatinine clearance is approximately 38. White count 6700 with 11.7 hemoglobin, platelet count is normal at 187. Urine showed 1+ protein and ketones, otherwise unremarkable. Prothrombin time slightly increased at 18.0 with an INR of 1.48. He is somewhat hypertensive with a blood pressure 168/72, pulse 79 respiratory rate 18. No fever with a 97.8 temperature. ASSESSMENT: Patient with atrial fibrillation with controlled rate, hypertension , history of coronary artery disease with known pendant risk factors but activity level suggesting that he tolerates at least four METS of activity on a routine basis. He is a candidate for surgery due to bowel obstruction and unfortunately he has been on Pradaxa which was discontinued just yesterday morning. Saturday will put him three days out which is minimal interval for acceptable discontinuation of Pradaxa. Although at this interval which is not optimal, one would wish to avoid neuraxial anesthesia because the attendant risk with same. If that type of anesthesia is required, I think that the patient would need to wait longer for surgery or utilize Pradaxa reversing agent. The patient's last nuclear medicine stress test was 2006 and the patient has not been tested since, since he has repeatedly declined repeat stress testing according to his strategic alliances manager's note. Therefore, although we can expect that the patient has known coronary artery risk, at this time I think there is little likelihood that meaningful intervention with further testing and considering he needs urgent surgery, I think the most appropriate thing we can do is to optimize his risk. At this point, his pressure is suboptimally controlled. It might be reasonable to add transdermal clonidine to improve blood pressure control, particularly since, although he is getting atenolol ordered, it is not likely that this drug is going to be particularly effective with the ongoing ileus. The interval for discontinuation of Pradaxa, as stated above, should optimally be 4-5 days considering his decreased renal function, three days would be minimal, but if surgery is done in three days, I think it would be prudent to avoid neuraxial anesthesia. Thank you for the request to see Mr. Constantino and I will follow along with you. GINID
--- NOTE | 2016-08-23 12:31 | HPE ---
DATE OF ADMISSION: 08/21/2016 HISTORY OF PRESENT ILLNESS: The patient is an 89-year-old male who was admitted a couple weeks ago for a small bowel obstruction secondary to hernias. At that time, it was deemed that possible surgical intervention was necessary for him for this incarcerated right inguinal hernia that resolved with manual manipulation; however, after discussion with family, the patient did not desire operative intervention at that time and would like "to think about it." He was discharged home at that time and now returns in with an abdominal distension, crampy abdominal pain, nausea, vomiting evidence of a small bowel obstruction with discomfort in the right inguinal hernia. Dr. Mack saw him in the emergency room and decompressed his right inguinal hernia and has had a nasogastric tube in place since that time with no significant abdominal pain, nausea, vomiting, or other complaints. PAST MEDICAL HISTORY: Past medical history is significant for history of coronary artery disease, history of atrial fibrillation, history of angioplasty, history of benign prostatic hypertrophy (BPH), history of hyperlipidemia, history of hypertension, history of decreased ejection fraction, history of cholecystectomy. Medications include: - Nitrostat - Nitro-Dur - simvastatin - atenolol - Diovan - Pradaxa PHYSICAL EXAMINATION: Reveals an elderly male who looks stated age. HEENT is unremarkable. NECK: Supple without adenopathy. LUNGS: Clear to auscultation, although diminished at the bases. HEART: Irregularly irregular. ABDOMEN: Softly distended, mildly uncomfortable with palpation in the right lower quadrant/right inguinal area, but otherwise no guarding or rebound is appreciated. IMPRESSION AND PLAN: The patient has evidence of a small bowel obstruction again and it appears most likely causing the bowel obstruction is secondary to the inguinal hernias. I anticipate it is most likely that the right inguinal hernia is the primary problem given his discomfort associated with this, although it could also be the left inguinal hernia. Thus, my recommendation is that he proceed with operative intervention once his anticoagulation issues have resolved. Thus, we will plan to place him on the schedule for Saturday with a bilateral open inguinal hernia repair. I would like to proceed with this if it is amenable to the medicine service and if anesthesia also feels that operatively he will tolerate this. The risks, as well as benefits have been discussed with the patient's family the last time he was in the hospital, as well as this time I have discussed the risks, benefits with the patient at length and he would like to proceed with these, those include, but are not limited to infection, bleeding, damage to surrounding structures and possible need for additional reoperative surgery, possible need for bowel resection and possible damage to surrounding structures, including bowel, bladder, nerves, vessels.
--- NOTE | 2016-08-23 13:21 | IPN ---
DATE: 08/23/2016 The patient overall has been doing well with his nasogastric (NG) tube over the last couple of days. He had two bowel movements last night. He is not complaining of any abdominal pain, nausea or vomiting. He has had a significant amount of sputum and coughing up a significant amount of phlegm. His temperature was slightly elevated overnight with a 99.5 elevated temperature. His laboratories still show a normal white count, however. When I look at his sputum at the bedside though, this is more discolored and concerning than I would expect. Thus, I will send off a sputum for him. His lungs reveal some rhonchorous breath sounds bilaterally. Heart is regular with multiple irregular beats. Abdomen is soft, nontender, nondistended. He has bilateral inguinal hernias but these are nontender and they are partially reducible here today, but his abdomen is soft. He is complaining significantly of a sore throat. IMPRESSION AND PLAN: The patient is nondistended and with a soft, benign abdomen. I do feel that it is reasonable to discontinue his nasogastric (NG) tube and we will see if he can tolerate this NG tube out, and then we will plan on operative intervention tomorrow. Medicine has optimized him as best as they feel possible and we will have anesthesia see him as well for recommendations. The plan is for an open bilateral inguinal hernia repair for him tomorrow. If necessary, we will discuss delay in operative intervention if respiratory issues are a problem or if anesthesia or medicine feel that it is best to delay this timing.
[2016-08-23 14:00] VITALS: BP 109/75
[2016-08-23] MEDS ORDERED: ACETAMINOPHEN 325 MG/10.15 ML UDC PO ONE (16:00)
[2016-08-23] MEDS: ACETAMINOPHEN 325 MG/10.15 ML UDC PO PRN (16:15)
--- NOTE | 2016-08-23 20:39 | CR ---
DATE OF CONSULTATION: 08/23/2016 REFERRING PHYSICIAN: Dr. Girard HISTORY OF PRESENT ILLNESS: I was asked by Dr. Girard to see Mr. Constantino regarding preoperative evaluation for hernia repair. He is a pleasant 89-year-old man who is well known to me. He presented to [facility] on 08/21/2016 with symptoms of GI obstruction and was found to have probably at least partially incarcerated right inguinal hernia. Because he has been chronically on Pradaxa he is awaiting weaning off the Pradaxa before surgery. Since admission, he was initially treated with nothing by mouth and NG tube placement and brought significant improvement and the tube was actually removed earlier today. The patient tells me that he feels much better since the tube has been removed. Unfortunately he continues to have serious soreness in his throat likely irritation from the tube. He denies any chest pain or shortness of breath. He still has some discomfort around the right groin but no nausea and he has not had any vomiting. From cardiac perspective he denies any recent anginal symptoms. He was reasonably active for his age until he presented to hospital. Activity of daily of living without significant difficulty. PAST MEDICAL HISTORY: 1. Coronary artery disease. He has a history of coronary artery bypass surgery in 1994 (received LOZADA to LAD, SVG to distal RCA and sequential SVG to diagonal and obtuse marginal). His last evaluation for ischemia was nuclear stress test in September 2006, which revealed normal perfusion and calculated left ventricle ejection fraction is 49%. He has been refusing any additional evaluation since but he did not have any symptoms suggestive of ischemia. 2. Chronic atrial fibrillation. Has been chronically anticoagulated with Pradaxa and rate control with 50 mg of atenolol. 3. Dyslipidemia. 4. Chronic renal insufficiency stage III. 5. History of BPH. 6. Degenerative joint disease. 7. GERD. PAST SURGICAL HISTORY: Positive for CABG 1994, cholecystectomy and cataract surgery. OUTPATIENT MEDICATIONS: - atenolol 50 a day, - Diovan 80 day - multivitamin - nitroglycerin as needed - omeprazole 20 mg 2 tablets a day - [id number] - Pradaxa 150 twice a day - vitamin D 3 2000 units a day - simvastatin 40 mg daily FAMILY HISTORY: His brother had a bypass surgery. Mother in her late 60s of renal cancer and father of liver cirrhosis. SOCIAL HISTORY: The patient is , lives with his . He has three children. He has been a lifelong drinker one drink per day. He also used to smoke, but quit many years ago. REVIEW OF SYSTEMS: On the review of systems he denies any chest pain, fever, chills. There is no history of stroke. No palpitations. No syncope, near syncope. He has had intermittent abdominal pain related to his hernias. Actually there was elective plan for surgery but unfortunately he presented acutely. There is no history of recent blood in his stools. No peripheral edema. The rest is negative. PHYSICAL EXAMINATION: Mr. Constantino is an elderly man. He appears to be in no distress. Blood pressure is 109/75, heart rate has been in 70s and 80s and irregularly irregular. He is afebrile. Saturation 96% on room air. Weight is documented at 72 kg on admission. His JVP is about 2 cm above clavicle. Lungs are reasonably well to auscultation but there are wet rhonchorous sounds upcoming from the upper airway likely again related to recent irritation with NG tube. Heart exam reveals somewhat muffled heart sounds irregularly irregular rhythm. I do not appreciate any distinct murmur, gallop or rub. Abdomen is soft. There is some tenderness and hardness in his right inguinal region. Bowel sounds are present. Extremities are free of edema. Peripheral pulses are preserved. Neurologically he is alert and oriented, appropriate x3 and I do not appreciate any focal weakness. I did not formally test his strength or deep tendon reflexes. LABORATORY DATA: As of this morning WBC count was 8.1, hematocrit 41, hemoglobin 13 and platelet count 209,000. Basic metabolic panel: potassium 3.8, BUN 20, creatinine 1.3 and GFR 57. His INR on admission was 1.5. Urinalysis had 1.1+ protein, 1+ ketones. Chest x-ray was suggestive of borderline cardiomegaly and possibly mild vascular distribution. I did not appreciate any distinct infiltrates. CT of abdomen and pelvis revealed bilateral inguinal hernias with partial small-bowel obstruction. 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 No electrocardiogram was performed. ASSESSMENT/PLAN: Mr. Constantino is a 89-year-old man who has remote history of bypass surgery but no anginal symptoms and no congestive heart failure. He also has chronic atrial fibrillation that is well rate-controlled. He presented with partial small bowel obstruction related to a large bilateral inguinal hernias. His last dose of Pradaxa was on 08/21/2016 in the morning. By tomorrow it will be 3 days since his last Pradaxa dose and even though his GFR is between 50 and 60, in my opinion it is safe to proceed with general surgery provided no spinal or epidural anesthesia is utilized and the procedure will be done under general anesthesia, which seems to be likely. As above even though he has established coronary artery disease with remote history of CABG, he does not have any anginal symptoms. He does not have congestive heart failure and the surgery is undoubtedly clearly indicated. As there is no ECG on file, I am requesting ECG for tomorrow morning. If there are any new findings on chest exam I would also recommend to get repeated back chest x-ray to make sure that the patient actually has not aspirated as he had NG tube for at least 2 days. Nevertheless, the surgery seems to be clearly indicated and I do not think it should be further delayed unless felt absolutely necessary. On the other hand if is felt that spinal or epidural anesthesia would be beneficial here (I am doubtful of this) then I would recommend to wait at least another [address] Landon will be available for assistance tomorrow. VALERIE
[2016-08-23] MEDS: **NOTE PATIENT COMMENT** MISC XX SCH (21:00)
[2016-08-23 22:00] VITALS: BP 158/86
[2016-08-24] MEDS: D5W/0.45% SODIUM CHLORIDE 1,000 ML IV SCH ×2 (00:10→11:25)
[2016-08-24] MEDS: NORCO, ANEXSIA 5/325MG TABLET (HYDROcodone/ACETAMINOPHEN) PO PRN ×3 (00:23→22:46)
--- NOTE | 2016-08-24 01:05 | IPN ---
DATE OF SERVICE: 08/23/2016 SUBJECTIVE: The patient now has nasogastric (NG) out. He feels comfortable. He is pretty much asymptomatic, though he is aware of fullness in his right groin area, but no actual pain. He is nothing by mouth at this time. He denies chest pain or cough. His voice is hoarse. A bit of a sore throat after having the nasogastric tube discontinued. EXAMINATION: Vital signs: Blood pressure 109/75, pulse 77, respiratory rate 18. He is now taking his medications by mouth and without the NG in place I think the effectiveness of his medications will be enhanced and therefore I think at this time the transdermal clonidine ordered yesterday can be discontinued. Lungs: Poor gas exchange. No rales are heard. No wheezing. Heart: Irregular rhythm. No murmur audible to me at this time. Abdomen: Bowel sounds are quiet. He is nontender and does not seem to be distended. There is no pedal edema. IMPRESSION: Signs of bowel obstruction seem to have improved with discontinuation of his gastric tube. He is a candidate for fairly urgent surgery, however, and it may be necessary to replace the tube if he becomes distended. At this point, his blood pressure and heart rate are adequately controlled and the clonidine transdermal patch will be stopped. He remains on oral valsartan 80 mg daily and nitroglycerin patch, as well as atenolol 50 mg daily for blood pressure and heart rate control. PLAN: I think at this point will continue with medications as listed. He will remain on Pradaxa pending surgery and I recommend consultation with Dr. Martínez for further evaluation considering his known coronary artery disease. At this time, it appears that in order to proceed with neuraxial anesthesia, the patient will wait until after Saturday for definitive surgical intervention. I think this is optimal since clearance of the Pradaxa effect will be later with this gentleman because of his calculated creatinine clearance.
[2016-08-24 05:47] LABS: BASO % 0.2 % (0.0-1.0); EOS % 0.6 % (0.0-3.0); LARGE UNSTAINED CELL # 0.1 K/mm3 (0.0-0.4); LARGE UNSTAINED CELL % 1.7 % (0.0-4.0); LYMPH % 14.4 % (24.0-44.0); MEAN CORPUSCULAR HEMOGLOBIN 31.2 pg (27.0-33.0); MEAN CORPUSCULAR HGB CONC 32.4 g/dl (32.0-36.5); MEAN CORPUSCULAR VOLUME 96.4 fl (80.0-96.0); MONO # 0.6 K/mm3 (0.0-0.8); MONO % 8.2 % (0.0-5.0); NEUTROPHILS # 5.1 K/mm3 (1.8-7.7); NEUTROPHILS % 74.8 % (36.0-66.0); PLATELET COUNT, AUTOMATED 203 k/mm3 (150-450); RED CELL DISTRIBUTION WIDTH 13.1 % (11.5-14.5); WHITE BLOOD COUNT 6.9 K/mm3 (4.0-10.0)
[2016-08-24 06:00] VITALS: BP 140/71
[2016-08-24 06:05] LABS: ANION GAP 8 MEQ/L (8-16); BLOOD UREA NITROGEN 19 MG/DL (7-18); CALCIUM LEVEL 8.5 MG/DL (8.8-10.2); CARBON DIOXIDE LEVEL 30 MEQ/L (21-32); CHLORIDE LEVEL 99 MEQ/L (98-107); CREATININE FOR GFR 1.11 MG/DL (0.70-1.30); GLOMERULAR FILTRATION RATE > 60.0 (>35); GLUCOSE, FASTING 115 MG/DL (83-110); POTASSIUM SERUM 3.4 MEQ/L (3.5-5.1); SODIUM LEVEL 137 MEQ/L (136-145)
[2016-08-24] MEDS ORDERED: ALBUTEROL SULFATE 2.5 MG/0.5 ML INH NEB SOLN NEB PRN (07:45)
--- NOTE | 2016-08-24 07:59 | IPNPDOC ---
Subjective Date Seen The patient was seen on 08/24/16. Subjective Chief Complaint/HPI The patient is a 89-year-old male admitted with a reason for visit of A-Fib, Hernia,Inguinal,Bilateral Recurrent,Obstruct. Events since last encounter s/p multiple RE-attempts for NGT placement due to abdominal; pain overnight. Patient now with cough and wheeze. Denies SOB. Constitutional: Denies: Chills, Fever, Night Sweats ENT: Denies: Head Aches, Ear Pain, Dysphagia Pulmonary: Reports: Cough, Denies: Dyspnea Cardiovascular: Denies: Chest Pain, Palpitations, Orthopnea, Paroxysmal Noc. Dyspnea, Lt Headedness Gastrointestinal: Reports: Abdominal Pain, Other Symptoms (no flatus), Denies: Nausea, Vomiting, Diarrhea, Constipation Genitourinary: Denies: Dysuria, Frequency, Incontinence, Retention Objective Physical Examination General Exam: Positive: Alert, No Acute Distress ENT Exam: Positive: Atraumatic, Mucous membr. moist/pink, Pharynx Normal Neck Exam: Positive: Supple, Negative: JVD, thyromegaly Chest Exam: Positive: Clear to auscultation, Normal air movement Heart Exam: Positive: Rate Normal, Irregular Rhythm Abdomen Exam: Positive: BS Hypoactive, Soft, Tenderness (Right abdomen and pelvis) Extremity Exam: Positive: Normal pulses, Negative: Clubbing, Cyanosis, Edema Skin Exam: Positive: Nl turgor and temperature, Negative: Rash, Breakdown Psych Exam: Positive: Mental status NL, Mood NL, Oriented x 3 Assessment /Plan Problems (1) Hernia, inguinal, bilateral recurrent, with obstruction Status: Acute Problem Specific Plan: Consult Specialist Problem Text: Dr. Dodge attending, managing (2) HTN (hypertension) Status: Chronic Response to Treatment: Stable (3) CAD (coronary artery disease) Status: Chronic Response to Treatment: Stable Problem Text: Plavix on HOLD. Should hold x 5 days as general anesthesia is not recommended due to recent pulmonary process. Will need spinal anesthesia. Anticipate surgery date at the earliest: 08/27/2016. (4) BPH (benign prostatic hyperplasia) Status: Chronic Response to Treatment: Stable (5) A-fib Status: Chronic Plan/VTE VTE Prophylaxis Ordered?: No (HOLDING for surgery) VS, I&O, 24H, Fishbone Vital Signs/I&O Vital Signs Date Time Temp Pulse Resp B/P (MAP) Pulse Ox O2 Delivery O2 Flow Rate FiO2 08/24/16 06:00 98.4 75 18 140/71 (94) 93 08/24/16 05:47 Room Air I&O- Last 24 Hours up to 6 AM 08/24/16 05:59 Intake Total 160 ml Output Total 1400 ml Balance -1240 ml Laboratory Data 24H LABS Laboratory Tests 2 08/23/16 13:57: Bedside Glucose (Misc Panel) 101 08/24/16 05:19: White Blood Count 6.9, Red Blood Count 3.85L, Hemoglobin 12.0L, Hematocrit 37.1L , Mean Corpuscular Volume 96.4H, Mean Corpuscular Hemoglobin 31.2, Mean Corpuscular Hemoglobin Concent 32.4, Red Cell Distribution Width 13.1, Platelet Count 203, Neutrophils (%) (Auto) 74.8H, Lymphocytes (%) (Auto) 14.4L, Monocytes (%) (Auto) 8.2H, Eosinophils (%) (Auto) 0.6, Basophils (%) (Auto) 0.2 , Neutrophils # (Auto) 5.1, Lymphocytes # (Auto) 1.0L, Monocytes # (Auto) 0.6, Eosinophils # (Auto) 0.0, Basophils # (Auto) 0.0, Large Unclassified Cells % 1.7 , Large Unclassified Cells # 0.1, Anion Gap 8, Glomerular Filtration Rate > 60.0 , Blood Urea Nitrogen 19H, Creatinine 1.11, Sodium Level 137, Potassium Level 3.4L, Chloride Level 99, Carbon Dioxide Level 30, Calcium Level 8.5L CBC/BMP Laboratory Tests 08/24/16 05:19 Red Blood Count 3.85 L, Mean Corpuscular Volume 96.4 H, Mean Corpuscular Hemoglobin 31.2, Mean Corpuscular Hemoglobin Concent 32.4, Red Cell Distribution Width 13.1, Neutrophils (%) (Auto) 74.8 H, Lymphocytes (%) (Auto) 14.4 L, Monocytes (%) (Auto) 8.2 H, Eosinophils (%) (Auto) 0.6, Basophils (%) ( Auto) 0.2, Neutrophils # (Auto) 5.1, Lymphocytes # (Auto) 1.0 L, Monocytes # ( Auto) 0.6, Eosinophils # (Auto) 0.0, Basophils # (Auto) 0.0, Calcium Level 8.5 L Microbiology Microbiology 08/23/16 Gram Stain - Final, Resulted 08/23/16 Sputum Culture, Resulted Pending 08/22/16 Urine Culture - Final, Complete Anh Payne FIELD REPRESENTATIVES DIRECTOR August 24, 2016 07:59
--- NOTE | 2016-08-24 08:00 | REP ---
Clinical: Abnormal breath sounds and increased sputum production. Comparison: 08/21/2016. Findings: Line mediastinum and cardiac silhouette are within normal limits and stable. Evidence for prior sternotomy. 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 No acute consolidation, obvious effusion or pneumothorax. Skeletal structures demonstrate osteopenia and degenerative change. Impression: Chronic stable changes. No obvious acute cardiopulmonary process appreciated. Signed by Romel Tuttle MD 08/24/2016 07:51 A
[2016-08-24] MEDS: SIMVASTATIN 40 MG TAB PO SCH (08:42)
[2016-08-24] MEDS: ATENOLOL 50 MG TAB PO SCH (08:42)
[2016-08-24] MEDS: NITROGLYCERIN 0.4 MG/HR PATCH TD SCH (08:43)
[2016-08-24] MEDS: SENOKOT S TAB PO SCH ×2 (08:43→20:20)
[2016-08-24] MEDS: VALSARTAN 80 MG TAB (DIOVAN) PO SCH (08:43)
[2016-08-24] MEDS: PANTOPRAZOLE 40MG INJ (PROTONIX) (C9113) IV SCH (08:44)
[2016-08-24] MEDS: CHLORASEPTIC SPRAY MT PRN (08:44)
[2016-08-24] MEDS ORDERED: IPRATROPIUM 0.5MG/ALBUTEROL 2.5MG INH SOL UD 3ML (DUONEB)(J7620) NEB SCH (11:30)
[2016-08-24] MEDS: ONDANSETRON 4MG/2ML VIAL (J2405) IV PRN (13:46)
[2016-08-24 14:00] VITALS: BP 122/73
[2016-08-24] MEDS: IPRATROPIUM 0.5MG/ALBUTEROL 2.5MG INH SOL UD 3ML (DUONEB)(J7620) NEB SCH ×2 (14:23→19:16)
[2016-08-24] MEDS ORDERED: MULTIVITAMIN -ADULT INJECTION 10 ML, CR/CU/SE/MN/ZN INJ 1 ML in AMINO AC/ELECTROLYTE/DE... IV SCH (18:00)
[2016-08-24] MEDS ORDERED: FAT EMULSION IV 20% 500 ML IV SCH (18:00)
[2016-08-24] MEDS: SODIUM CHLORIDE 0.9% INJ 10 ML SYR IV SCH (18:00)
--- NOTE | 2016-08-24 20:01 | REP ---
Procedure: PICC line insertion with Silvina-Rudolph The procedure was performed under the direct supervision of Dr. Magdaleno. The risks and benefits of the procedure were explained to the patient and informed consent was obtained. The left basilic vein was localized using ultrasound guidance. The skin was prepped and draped in a sterile fashion. 2% lidocaine was used as a local anesthetic. Using ultrasound guidance the basilic vein was cannulated and a 0.018 guidewire was inserted and advanced to the SVC using fluoroscopic guidance. The needle was removed and a 5.5 Latvian dilator and peel-away sheath was inserted over the guide wire. A 5.5 Latvian dual lumen catheter was cut to length of 45 cm. The dilator was removed and the catheter was inserted over the guide wire with the tip ending in the SVC. The peel-away sheath was removed and the catheter was flushed with heparinized saline as per Hospital protocol. The catheter was affixed to the skin and a sterile dressing was applied. The the patient tolerated the procedure well and there were no immediate complications. 0.1 minutes of fluoro time was utilized for this procedure. Reviewed by TANIA Munson 08/24/2016 04:26 PSigned by Yahir Magdaleno MD 08/24/2016 07:52 P
[2016-08-24] MEDS: **NOTE PATIENT COMMENT** MISC XX SCH (20:21)
[2016-08-24 22:00] VITALS: BP 131/65
[2016-08-25] MEDS: ONDANSETRON 4MG/2ML VIAL (J2405) IV PRN ×2 (00:21→11:55)
[2016-08-25] MEDS: IPRATROPIUM 0.5MG/ALBUTEROL 2.5MG INH SOL UD 3ML (DUONEB)(J7620) NEB SCH ×4 (01:34→19:56)
[2016-08-25] MEDS: ACETAMINOPHEN TAB 650MG DOSE (2X325MG) PO PRN (02:44)
[2016-08-25] MEDS: SODIUM CHLORIDE 0.9% INJ 10 ML SYR IV SCH ×2 (05:36→18:24)
[2016-08-25 06:00] VITALS: BP 141/62
[2016-08-25 06:10] LABS: MEAN CORPUSCULAR HEMOGLOBIN 29.7 pg (27.0-33.0); MEAN CORPUSCULAR VOLUME 92.9 fl (80.0-96.0); PLATELET COUNT, AUTOMATED 216 k/mm3 (150-450); RED CELL DISTRIBUTION WIDTH 13.3 % (11.5-14.5); WHITE BLOOD COUNT 5.9 K/mm3 (4.0-10.0)
[2016-08-25 06:23] LABS: CALCIUM LEVEL 8.5 MG/DL (8.8-10.2); CREATININE FOR GFR 1.5 MG/DL (0.70-1.30); GLOMERULAR FILTRATION RATE 46.9 (>35); POTASSIUM SERUM 3.2 MEQ/L (3.5-5.1)
[2016-08-25 06:34] LABS: BANDS 9 % (< 11)
[2016-08-25] MEDS: SENOKOT S TAB PO SCH ×2 (08:15→21:37)
[2016-08-25] MEDS: ATENOLOL 50 MG TAB PO SCH (08:15)
[2016-08-25] MEDS: PANTOPRAZOLE 40MG INJ (PROTONIX) (C9113) IV SCH (08:15)
[2016-08-25] MEDS: SIMVASTATIN 40 MG TAB PO SCH (08:15)
[2016-08-25] MEDS: NITROGLYCERIN 0.4 MG/HR PATCH TD SCH (08:16)
[2016-08-25] MEDS: VALSARTAN 80 MG TAB (DIOVAN) PO SCH (08:16)
[2016-08-25] MEDS: SODIUM CHLORIDE 0.9% INJ 10 ML SYR IV PRN (08:17)
[2016-08-25] MEDS: METOCLOPRAMIDE INJ 10MG/2ML VIAL (J2765) IV SCH ×2 (13:15→21:15)
[2016-08-25 14:00] VITALS: BP 130/70
[2016-08-25] MEDS: KCL 10MEQ IN 100ML SWI (KRUN) 10 MEQ in APPROPRIATE DILUENT 1 EA IV SCH ×2 (16:27)
--- NOTE | 2016-08-25 17:08 | ECGEPIP ---
Stationary ECG Study [facility] Test Date: 2016-08-24 Pat Name: EMILIANA EASLEY Department: Room: [place] [address] Gender: M Home Companion: GLORIA : 1925 Requested By: Tito Martínez Order Number: [id number] Reading MD: Chidi Flowers Measurements Intervals [place] Rate: 83 P: AR: 0 QRS: 85 QRSD: 157 T: -9 QT: 443 QTc: 522 Interpretive Statements ATRIAL FIBRILLATION WITH VENTRICULAR PREMATURE COMPLEXES RIGHT BUNDLE BRANCH BLOCK Probable right ventricle hypertrophy. 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 RBBB and PVCs new compared with 04/14/2015 at 1333 hours. Electronically Signed On 08-25-2016 17:08:16 EDT by Chidi Flowers
[2016-08-25] MEDS ORDERED: POTASSIUM CHLORIDE INJ 40 MEQ in AMINO AC/ELECTROLYTE/DEX/CALC 2,000 ML IV SCH (18:00)
[2016-08-25] MEDS ORDERED: FAT EMULSION IV 20% 500 ML IV SCH (18:00)
[2016-08-25] MEDS: ACETAMINOPHEN 325 MG/10.15 ML UDC PO PRN (18:23)
[2016-08-25] MEDS: HumaLOG INSULIN (NovoLOG) PER UNIT SC SCH ×2 (18:24→23:50)
--- NOTE | 2016-08-25 20:47 | IPNPDOC ---
Subjective Date Seen The patient was seen on 08/25/16. Subjective Chief Complaint/HPI The patient is a 89-year-old male admitted with a reason for visit of A-Fib, Hernia,Inguinal,Bilateral Recurrent,Obstruct. Events since last encounter He notes some persistent RLQ discomfort. State he had a lot of nausea earlier, though improved now. NG tube in place, with 2900 ml of drainage by the time of this note. His son is present and will give him a haircut. Constitutional: Reports: Malaise, Fatigue, Denies: Chills, Fever Pulmonary: Denies: Dyspnea, Cough Cardiovascular: Denies: Chest Pain, Palpitations Gastrointestinal: Reports: Nausea, Abdominal Pain Hematologic: Reports: Bruising, Denies: Bleeding Excessively Psych: Reports: Mood Normal, Anxiety Objective Physical Examination General Exam: Positive: Alert, No Acute Distress ENT Exam: Positive: Atraumatic, Mucous membr. moist/pink, Pharynx Normal Neck Exam: Positive: Supple, Negative: JVD, thyromegaly Chest Exam: Positive: Clear to auscultation, Normal air movement Heart Exam: Positive: Rate Normal, Irregular Rhythm Abdomen Exam: Positive: BS Hypoactive, Soft, Tenderness (Right abdomen and pelvis) Extremity Exam: Positive: Normal pulses, Negative: Clubbing, Cyanosis, Edema Skin Exam: Positive: Nl turgor and temperature, Other skin issue (nontender bruise L lower back), Negative: Rash, Breakdown Psych Exam: Positive: Mental status NL, Mood NL, Oriented x 3 Assessment /Plan Problems (1) Hernia, inguinal, bilateral recurrent, with obstruction Status: Acute Problem Specific Plan: Consult Specialist Problem Text: Dr. Dodge attending, managing (2) HTN (hypertension) Status: Chronic Response to Treatment: Stable (3) CAD (coronary artery disease) Status: Chronic Response to Treatment: Stable Problem Text: Pradaxa on HOLD. Should hold x 5 days as general anesthesia is not recommended due to recent pulmonary process. Will need spinal anesthesia. Anticipate surgery date at the earliest: 08/27/2016. (4) BPH (benign prostatic hyperplasia) Status: Chronic Response to Treatment: Stable (5) A-fib Status: Chronic Plan/VTE VTE Prophylaxis Ordered?: No (HOLDING for surgery) VS, I&O, 24H, Fishbone Vital Signs/I&O Vital Signs Date Time Temp Pulse Resp B/P (MAP) Pulse Ox O2 Delivery O2 Flow Rate FiO2 08/25/16 14:00 99.3 96 20 130/70 (90) 90 Room Air I&O- Last 24 Hours up to 6 AM 08/25/16 06:00 Intake Total 900 ml Output Total 300 ml Balance 600 ml Laboratory Data 24H LABS Laboratory Tests 2 08/25/16 05:41: Neutrophils 75, Band Neutrophils 9, Lymphocytes (Manual) 9L, Monocytes (Manual) 5, Metamyelocytes 2H, Platelet Estimate NORMAL, Red Blood Cell Morphology NORMAL , Anion Gap 11, Glomerular Filtration Rate 46.9, Blood Urea Nitrogen 30#H, Creatinine 1.50H, Sodium Level 138, Potassium Level 3.2L, Chloride Level 98, Carbon Dioxide Level 29, Calcium Level 8.5L 08/25/16 16:21: Bedside Glucose (Misc Panel) 160H CBC/BMP Laboratory Tests 08/25/16 05:41 Red Blood Count 4.10 L, Mean Corpuscular Volume 92.9, Mean Corpuscular Hemoglobin 29.7, Mean Corpuscular Hemoglobin Concent 32.0, Red Cell Distribution Width 13.3, Calcium Level 8.5 L Microbiology Microbiology 08/23/16 Gram Stain - Final, Complete 08/23/16 Sputum Culture - Final, Complete Escherichia Coli 08/22/16 Urine Culture - Final, Complete ZA GARDNER DO August 25, 2016 20:47
[2016-08-25] MEDS: **NOTE PATIENT COMMENT** MISC XX SCH (21:00)
[2016-08-25 22:00] VITALS: BP 104/56
[2016-08-26] MEDS: IPRATROPIUM 0.5MG/ALBUTEROL 2.5MG INH SOL UD 3ML (DUONEB)(J7620) NEB SCH ×4 (01:59→18:23)
[2016-08-26] MEDS: METOCLOPRAMIDE INJ 10MG/2ML VIAL (J2765) IV SCH ×3 (05:15→21:02)
[2016-08-26 06:00] VITALS: BP 102/55
[2016-08-26] MEDS: SODIUM CHLORIDE 0.9% INJ 10 ML SYR IV SCH ×2 (06:02→18:27)
[2016-08-26] MEDS: HumaLOG INSULIN (NovoLOG) PER UNIT SC SCH ×3 (06:03→18:00)
[2016-08-26 06:26] LABS: BASO % 0.2 % (0.0-1.0); EOS # 0.1 K/mm3 (0.0-0.50); EOS % 1.3 % (0.0-3.0); LARGE UNSTAINED CELL # 0.2 K/mm3 (0.0-0.4); LARGE UNSTAINED CELL % 1.8 % (0.0-4.0); LYMPH # 1.4 K/mm3 (1.5-4.5); LYMPH % 13.7 % (24.0-44.0); MEAN CORPUSCULAR HEMOGLOBIN 31.3 pg (27.0-33.0); MEAN CORPUSCULAR HGB CONC 32.5 g/dl (32.0-36.5); MEAN CORPUSCULAR VOLUME 96.4 fl (80.0-96.0); MONO # 0.5 K/mm3 (0.0-0.8); NEUTROPHILS # 7.8 K/mm3 (1.8-7.7); NEUTROPHILS % 77.9 % (36.0-66.0); PLATELET COUNT, AUTOMATED 201 k/mm3 (150-450); RED CELL DISTRIBUTION WIDTH 13.1 % (11.5-14.5)
[2016-08-26 06:34] LABS: CALCIUM LEVEL 8.5 MG/DL (8.8-10.2); CREATININE FOR GFR 1.83 MG/DL (0.70-1.30); GLOMERULAR FILTRATION RATE 37.3 (>35); POTASSIUM SERUM 3.4 MEQ/L (3.5-5.1)
--- NOTE | 2016-08-26 06:53 | REP ---
ABDOMINAL SERIES: Supine and erect views of the abdomen and pelvis demonstrate no evidence of free intraperitoneal air. Nasogastric tube is seen with side port in the stomach. The stomach demonstrates moderate air and fluid within it. There is a moderately dilated small bowel loop in the left upper quadrant. I do not see any other dilated small bowel loops. Metallic clips are seen in the right upper quadrant. There are degenerative changes of the spine. An accompanying view of the chest demonstrates some new patchy infiltrate in the right lower lung zone. IMPRESSION: A moderately dilated small bowel loop is seen in the left upper quadrant. Nasogastric tube in good position. In the right lung, there is patchy infiltrate inferiorly. Signed by Yahir Magdaleno MD 08/26/2016 07:49 P
[2016-08-26] MEDS: VALSARTAN 80 MG TAB (DIOVAN) PO SCH (08:14)
[2016-08-26] MEDS: ATENOLOL 50 MG TAB PO SCH (08:14)
[2016-08-26] MEDS: SIMVASTATIN 40 MG TAB PO SCH (08:14)
[2016-08-26] MEDS: SENOKOT S TAB PO SCH ×2 (08:14→21:00)
[2016-08-26] MEDS: NITROGLYCERIN 0.4 MG/HR PATCH TD SCH (08:15)
[2016-08-26] MEDS: PANTOPRAZOLE 40MG INJ (PROTONIX) (C9113) IV SCH (08:15)
[2016-08-26] MEDS: ACETAMINOPHEN 325 MG/10.15 ML UDC PO PRN (08:16)
--- NOTE | 2016-08-26 09:26 | IPNPDOC ---
Subjective General Date/Time Seen The patient was seen on 08/26/16 at 09:17. I placed an NG tube yesterday as he had been very nauseated, attempting to vomit but not able to. We had 2900 of ngt drainage past 24 hours. Patient reports feeling better today. He also had a couple of loose bowel movements. [place] much improved. Subject Chief Complaint/History The patient is a 89-year-old male admitted with a reason for visit of A-Fib, Hernia,Inguinal,Bilateral Recurrent,Obstruct. Current Medications Current Medications Current Medications Acetaminophen (Tylenol Suspension) 650 mg QIDP PRN PO PAIN / FEVER Last administered on 08/26/16 08:16; Start 08/23/16 at 16:00; Stop 09/22/16 at 15:59 Acetaminophen (Tylenol Tab) 650 mg Q4HP PRN PO MILD PAIN or TEMP > 101 Last administered on 08/25/16 02:44; Start 08/21/16 at 16:45; Stop 09/20/16 at 16:44 Acetaminophen/ Hydrocodone Bitart ([place], Anexsia 5/325) 1 tab Q4HP PRN PO MODERATE PAIN (PS 5-7) Last administered on 08/24/16 22:46; Start 08/21/16 at 16 :45; Stop 08/28/16 at 16:44 Acetaminophen/ Hydrocodone Bitart ([place], Anexsia 5/325) 2 tab Q6HP PRN PO SEVERE PAIN (PS 8-10); Start 08/21/16 at 16:45; Stop 08/28/16 at 16:44 Albuterol Sulfate (Proventil Neb) 2.5 mg Q2HP PRN NEB SOB/WHEEZING Last administered on 08/24/16 10:14; Start 08/24/16 at 07:45; Stop 09/23/16 at 07:44 Albuterol/ Ipratropium (Duoneb (Ipr 0.5mg/Alb 2.5mg)) 3 ml Q6H NEB ; Start 08/24 at 11:30; Stop 08/24/16 at 11:30; Status DC Albuterol/ Ipratropium (Duoneb (Ipr 0.5mg/Alb 2.5mg)) 3 ml RQ6H NEB Last administered on 08/24/16 19:16; Start 08/24/16 at 14:00; Stop 09/23/16 at 13:59 Atenolol (Tenormin) 50 mg DAILY PO Last administered on 08/26/16 08:14; Start 08/22/16 at 09:00; Stop 09/21/16 at 08:59 Clonidine HCl (Myylvdnl-Jpw-8) 1 ea We@0900 TOP Last administered on 08/22/16 15:28; Start 08/22/16 at 09:00; Stop 08/23/16 at 17:31; Status DC Dextrose/Sodium Chloride 1,000 ml @ 75 mls/hr [id number] IV ; Start 08/23/16 at 08 :30; Stop 08/23/16 at 08:38; Status DC Dextrose/Sodium Chloride 1,000 ml @ 75 mls/hr [id number] IV Last administered on 08/24/16 00:10; Start 08/23/16 at 08:45; Stop 08/24/16 at 18:19; Status DC Fat Emulsion Intravenous 500 ml @ 20 mls/hr 1T@18 IV Last administered on 08/24 18:16; Start 08/24/16 at 18:00; Stop 08/25/16 at 17:59; Status DC Fat Emulsion Intravenous 500 ml @ 20 mls/hr 1T@18 IV Last administered on 08/25 18:24; Start 08/25/16 at 18:00; Stop 08/26/16 at 17:59 Heparin Sodium (Heparin (Flush)) 200 units ASDIRECTED PRN IV SEE LABEL COMMENTS Last administered on 08/25/16 08:17; Start 08/24/16 at 16:30; Stop 03/01 at 16:29 Heparin Sodium (Heparin (Flush)) 200 units PICC IV Last administered on 06:02; Start 08/24/16 at 18:00; Stop 09/23/16 at 17:59 Heparin Sodium (Porcine) (Heparin) 5,000 units Q12H SC Last administered on 08:43; Start 08/21/16 at 21:00; Stop 08/23/16 at 11:50; Status DC Home Med (Med Rec Complete!) ASDIRECTED XX ; Start 08/21/16 at 14:00; Stop at 14:00; Status DC Insulin Human Lispro (HumaLOG INSULIN) See Protocol Table Q6H SC Last administered on 08/26/16 06:03; Start 08/25/16 at 18:00; Stop 08/26/16 at 12:01 Lactated Ringer's 1,000 ml @ 80 mls/hr [id number] IV Last administered on 05:26; Start 08/21/16 at 16:39; Stop 08/23/16 at 08:36; Status DC Metoclopramide HCl (REGLAN INJection) 10 mg Q8H IV ; Start 08/25/16 at 13:15; Stop 09/24/16 at 13:14 Morphine Sulfate (Morphine Sulfate Inj) 2 mg Q15M PRN IV MODERATE/SEVERE PAIN ( PS 5-10) Last administered on 08/21/16 13:45; Start 08/21/16 at 12:15; Stop at 21:36; Status DC Morphine Sulfate (Morphine Sulfate Inj) 4 mg Q4HP PRN IV SEVERE PAIN (PS 8-10) Last administered on 08/21/16 18:45; Start 08/21/16 at 16:45; Stop 08/28/16 at 16 :44 Multivitamins 10 ml/Chromium/ Copper/Manganese/ Seleni/Zn 1 ml/ Amino Ac/ Electrol/ Dextrose/Calcium 2,011 ml @ 50 mls/hr 1T@18 IV Last administered on 08/24/16 18:16; Start 08/24/16 at 18:00; Stop 08/25/16 at 17:59; Status DC Nitroglycerin (Nitrodur 0.4 Mg/ Hr) 1 patch DAILY TD Last administered on 08:15; Start 08/22/16 at 09:00; Stop 09/21/16 at 08:59 Nitroglycerin (Nitrostat (1/ 150)) 0.4 mg Q5MP PRN SL CHEST PAIN; Start at 22:00; Stop 09/20/16 at 21:59 Non-Formulary Medication ( See Comment Field Below ) DAILY@21 XX Last administered on 08/25/16 21:00; Start 08/21/16 at 21:00; Stop 09/20/16 at 20:59 Ondansetron HCl (ZOFRAN INJection) 4 mg Q6HP PRN IV NAUSEA OR VOMITING Last administered on 08/25/16 11:55; Start 08/21/16 at 16:45; Stop 09/20/16 at 16:44 Pantoprazole Sodium (Protonix) 40 mg DAILY IV Last administered on 08/26/16 08 :15; Start 08/22/16 at 09:00; Stop 09/21/16 at 08:59 Phenol (Chloraseptic (Cepacol)) 1-2 SPRAYS Q2HP PRN MT SORE THROAT Last administered on 08/24/16 08:44; Start 08/22/16 at 10:45; Stop 09/21/16 at 10:44 Potassium Chloride 10 meq/ IV Miscellaneous Supplies 100 ml @ 100 mls/hr Q1H IV Last administered on 08/25/16 16:27; Start 08/25/16 at 14:00; Stop at 15:59; Status DC Potassium Chloride 40 meq/ Amino Ac/Electrol/ Dextrose/Calcium 2,020 ml @ 65 mls/hr 1T@18 IV Last administered on 08/25/16 18:24; Start 08/25/16 at 18:00; Stop 08/26/16 at 17:59 Senna/Docusate Sodium (Senokot S) 1 tab BID PO Last administered on 08/23/16 21:49; Start 08/21/16 at 21:00; Stop 08/24/16 at 08:01; Status DC Senna/Docusate Sodium (Senokot S) 2 tab BID PO Last administered on 08/26/16 08:14; Start 08/24/16 at 09:00; Stop 09/23/16 at 08:59 Simvastatin (Zocor) 40 mg DAILY PO Last administered on 08/26/16 08:14; Start 08/22/16 at 09:00; Stop 09/21/16 at 08:59 Sodium Chloride 1,000 ml @ 100 mls/hr Q10H IV Last administered on 08/21/16 13 :44; Start 08/21/16 at 12:13; Stop 08/21/16 at 18:33; Status DC Sodium Chloride (Saline Lock Flush) 10 ML PICC IV Last administered on 06:02; Start 08/24/16 at 18:00; Stop 09/23/16 at 17:59 Sodium Chloride (Saline Lock Flush) 10ML ASDIRECTED PRN IV SEE LABEL COMMENTS Last administered on 08/25/16 08:17; Start 08/24/16 at 16:30; Stop 09/23/16 at 16:29 Valsartan (Diovan) 80 mg DAILY PO Last administered on 08/26/16 08:14; Start 08/22/16 at 09:00; Stop 09/21/16 at 08:59 Allergies Coded Allergies: No Known Allergies (Verified , 08/21/16) Objective Physical Examination Examination GENERAL APPEARANCE:[Patient seen, laying in bed, awake, alert, and oriented. Comfortable, in no acute distress]. SKIN: [Warm and dry. lips mildly dry HEENT: [Normocephalic, atraumatic. [place] palpebral conjunctiva, anicteric sclerae. Lips and mucosa appear dry]. NECK: [Supple, no thyromegaly. No obvious jugular venous distention]. LUNGS: [Clear to auscultation bilaterally. No wheezing appreciated]. HEART: [No chest wall abnormalities. Regular rate and irregularly irregular rhythm with no murmurs appreciated]. ABDOMEN: Abdomen is only minimally distended now. The inguinal hernia seems reduced back in the abdomen, soft. Nontender on palpation EXTREMITIES: [Extremities have no deformities. No edema identified]. Vital Signs Vital Signs Date Time Temp Pulse Resp B/P (MAP) Pulse Ox O2 Delivery O2 Flow Rate FiO2 08/26/16 08:15 158/70 08/26/16 08:14 70 08/26/16 06:00 98.6 18 95 Room Air I&Os I&O- Last 24 Hours up to 6 AM 08/26/16 06:00 Intake Total 60 ml Output Total 3150 ml Balance -3090 ml Laboratory Data Labs 24H Laboratory Tests 2 08/25/16 16:21: Bedside Glucose (Misc Panel) 160H 08/25/16 23:44: Bedside Glucose (Misc Panel) 133H 08/26/16 05:47: Bedside Glucose (Misc Panel) 107 08/26/16 06:01: White Blood Count 10.0, Red Blood Count 3.74L, Hemoglobin 11.7L, Hematocrit 36.0L, Mean Corpuscular Volume 96.4H, Mean Corpuscular Hemoglobin 31.3, Mean Corpuscular Hemoglobin Concent 32.5, Red Cell Distribution Width 13.1, Platelet Count 201, Neutrophils (%) (Auto) 77.9H, Lymphocytes (%) (Auto) 13.7L, Monocytes (%) (Auto) 5.0, Eosinophils (%) (Auto) 1.3, Basophils (%) (Auto) 0.2, Neutrophils # (Auto) 7.8H, Lymphocytes # (Auto) 1.4L, Monocytes # (Auto) 0.5, Eosinophils # (Auto) 0.1, Basophils # (Auto) 0.0, Large Unclassified Cells % 1.8 , Large Unclassified Cells # 0.2, Anion Gap 8, Glomerular Filtration Rate 37.3, Blood Urea Nitrogen 49#H, Creatinine 1.83H, Sodium Level 135L, Potassium Level 3.4L, Chloride Level 98, Carbon Dioxide Level 29, Calcium Level 8.5L CBC/BMP Laboratory Tests 08/26/16 06:01 Red Blood Count 3.74 L, Mean Corpuscular Volume 96.4 H, Mean Corpuscular Hemoglobin 31.3, Mean Corpuscular Hemoglobin Concent 32.5, Red Cell Distribution Width 13.1, Neutrophils (%) (Auto) 77.9 H, Lymphocytes (%) (Auto) 13.7 L, Monocytes (%) (Auto) 5.0, Eosinophils (%) (Auto) 1.3, Basophils (%) ( Auto) 0.2, Neutrophils # (Auto) 7.8 H, Lymphocytes # (Auto) 1.4 L, Monocytes # ( Auto) 0.5, Eosinophils # (Auto) 0.1, Basophils # (Auto) 0.0, Calcium Level 8.5 L Microbiology Microbiology 08/23/16 Gram Stain - Final, Complete 08/23/16 Sputum Culture - Final, Complete Escherichia Coli 08/22/16 Urine Culture - Final, Complete Impression Large bilateral inguinal hernia Plan is to bring him to surgery next week for repair of hernia. Spinal anesthesia is contemplated. will just use scds for vte prophylaxis small bowel obstruction improved with placement back of ngt, his inguinal area is a lot softer now, with the contents appearing to be reduced back in the abdomen will clamp the ngt today, depending on the surgical plans tomorrow, maybe able to be removed postop continue on tpn, hypokalemia k+ in tpn Plan / VTE VTE Prophylaxis Ordered?: Yes (HOLDING for surgery) VTE Exclusion Pharmacological: Other (on pradaxa, expected surgery may use spinal ) ADELA ALBERTO MD August 26, 2016 09:20
[2016-08-26] MEDS ORDERED: NS 1,000 ML IV ONE (09:30)
[2016-08-26 14:00] VITALS: BP 127/58
[2016-08-26] MEDS ORDERED: FAT EMULSION IV 20% 500 ML IV SCH (18:00)
[2016-08-26] MEDS ORDERED: POTASSIUM CHLORIDE INJ 40 MEQ in AMINO AC/ELECTROLYTE/DEX/CALC 2,000 ML IV SCH (18:00)
[2016-08-26] MEDS: CHLORASEPTIC SPRAY MT PRN (19:45)
[2016-08-26] MEDS: **NOTE PATIENT COMMENT** MISC XX SCH (21:00)
[2016-08-26 22:00] VITALS: BP 105/54
--- NOTE | 2016-08-26 22:58 | IPNPDOC ---
Subjective Date Seen The patient was seen on 08/26/16. Subjective Chief Complaint/HPI The patient is a 89-year-old male admitted with a reason for visit of A-Fib, Hernia,Inguinal,Bilateral Recurrent,Obstruct. Events since last encounter Family members here and visiting. Patient notes worsening cough, productive of sputum, worse in the a.m. He denies fever or chest discomfort. New infiltrate on chest imaging. Patient reports otherwise feeling well. His abdomen feels much better. Constitutional: Denies: Chills, Fever, Malaise Pulmonary: Reports: Dyspnea (mild, attributes to NG tube), Cough Cardiovascular: Denies: Chest Pain Gastrointestinal: Reports: Diarrhea, Denies: Nausea, Vomiting, Constipation Genitourinary: Denies: Dysuria Objective Physical Examination General Exam: Positive: Alert, No Acute Distress ENT Exam: Positive: Atraumatic, Mucous membr. moist/pink, Pharynx Normal Neck Exam: Positive: Supple, Negative: JVD, thyromegaly Chest Exam: Positive: Clear to auscultation, Normal air movement Heart Exam: Positive: Rate Normal, Irregular Rhythm Abdomen Exam: Positive: BS Hypoactive, Soft, Tenderness (Right abdomen and pelvis, improved) Extremity Exam: Positive: Normal pulses, Negative: Clubbing, Cyanosis, Edema Skin Exam: Positive: Nl turgor and temperature, Other skin issue (nontender bruise L lower back), Negative: Rash, Breakdown Psych Exam: Positive: Mental status NL, Mood NL, Oriented x 3 Assessment /Plan Problems (1) Hernia, inguinal, bilateral recurrent, with obstruction Status: Acute Problem Specific Plan: Consult Specialist Problem Text: Dr. Dodge attending, managing (2) Pneumonia Problem Text: Will treat for an early HCAP with new R sided infiltrate (seen on chest film of abdominal X ray) and patient's spontaneous complaint of cough, productive of sputum. (3) HTN (hypertension) Status: Chronic Response to Treatment: Stable (4) CAD (coronary artery disease) Status: Chronic Response to Treatment: Stable Problem Text: Pradaxa on HOLD. Should hold x 5 days as general anesthesia is not recommended due to recent pulmonary process. Will need spinal anesthesia. Anticipate surgery date at the earliest: 08/27/2016. (5) BPH (benign prostatic hyperplasia) Status: Chronic Response to Treatment: Stable (6) A-fib Status: Chronic Plan/VTE VTE Prophylaxis Ordered?: Yes (HOLDING for surgery) VTE Exclusion Pharmacological: Other (on pradaxa, expected surgery may use spinal ) VS, I&O, 24H, Fishbone Vital Signs/I&O Vital Signs Date Time Temp Pulse Resp B/P (MAP) Pulse Ox O2 Delivery O2 Flow Rate FiO2 08/26/16 14:00 98.1 96 20 127/58 (81) 91 Room Air I&O- Last 24 Hours up to 6 AM 08/26/16 05:59 Intake Total 60 ml Output Total 3150 ml Balance -3090 ml Laboratory Data 24H LABS Laboratory Tests 2 08/25/16 23:44: Bedside Glucose (Misc Panel) 133H 08/26/16 05:47: Bedside Glucose (Misc Panel) 107 08/26/16 06:01: White Blood Count 10.0, Red Blood Count 3.74L, Hemoglobin 11.7L, Hematocrit 36.0L, Mean Corpuscular Volume 96.4H, Mean Corpuscular Hemoglobin 31.3, Mean Corpuscular Hemoglobin Concent 32.5, Red Cell Distribution Width 13.1, Platelet Count 201, Neutrophils (%) (Auto) 77.9H, Lymphocytes (%) (Auto) 13.7L, Monocytes (%) (Auto) 5.0, Eosinophils (%) (Auto) 1.3, Basophils (%) (Auto) 0.2, Neutrophils # (Auto) 7.8H, Lymphocytes # (Auto) 1.4L, Monocytes # (Auto) 0.5, Eosinophils # (Auto) 0.1, Basophils # (Auto) 0.0, Large Unclassified Cells % 1.8 , Large Unclassified Cells # 0.2, Anion Gap 8, Glomerular Filtration Rate 37.3, Blood Urea Nitrogen 49#H, Creatinine 1.83H, Sodium Level 135L, Potassium Level 3.4L, Chloride Level 98, Carbon Dioxide Level 29, Calcium Level 8.5L 08/26/16 11:45: Bedside Glucose (Misc Panel) 123H 08/26/16 17:21: Bedside Glucose (Misc Panel) 132H CBC/BMP Laboratory Tests 08/26/16 06:01 Red Blood Count 3.74 L, Mean Corpuscular Volume 96.4 H, Mean Corpuscular Hemoglobin 31.3, Mean Corpuscular Hemoglobin Concent 32.5, Red Cell Distribution Width 13.1, Neutrophils (%) (Auto) 77.9 H, Lymphocytes (%) (Auto) 13.7 L, Monocytes (%) (Auto) 5.0, Eosinophils (%) (Auto) 1.3, Basophils (%) ( Auto) 0.2, Neutrophils # (Auto) 7.8 H, Lymphocytes # (Auto) 1.4 L, Monocytes # ( Auto) 0.5, Eosinophils # (Auto) 0.1, Basophils # (Auto) 0.0, Calcium Level 8.5 L Microbiology Microbiology 08/23/16 Gram Stain - Final, Complete 08/23/16 Sputum Culture - Final, Complete Escherichia Coli 08/22/16 Urine Culture - Final, Complete ZA GARDNER DO August 26, 2016 22:58
[2016-08-27] MEDS: PIPERACILLIN/TAZOBACTAM SOD 2.25 GM in D5W MINI-BAG PLUS 50 ML IV SCH ×4 (00:15→18:22)
[2016-08-27] MEDS: IPRATROPIUM 0.5MG/ALBUTEROL 2.5MG INH SOL UD 3ML (DUONEB)(J7620) NEB SCH ×4 (01:48→20:00)
[2016-08-27] MEDS: METOCLOPRAMIDE INJ 10MG/2ML VIAL (J2765) IV SCH ×3 (05:06→20:21)
[2016-08-27] MEDS: HumaLOG INSULIN (NovoLOG) PER UNIT SC SCH ×3 (05:59→12:37)
[2016-08-27] MEDS: SODIUM CHLORIDE 0.9% INJ 10 ML SYR IV SCH ×2 (05:59→18:22)
[2016-08-27 06:00] VITALS: BP 123/63
[2016-08-27 06:33] LABS: BASO % 0.1 % (0.0-1.0); EOS # 0.2 K/mm3 (0.0-0.50); EOS % 1.7 % (0.0-3.0); LARGE UNSTAINED CELL # 0.2 K/mm3 (0.0-0.4); LARGE UNSTAINED CELL % 1.5 % (0.0-4.0); LYMPH % 7.7 % (24.0-44.0); MEAN CORPUSCULAR HEMOGLOBIN 31.7 pg (27.0-33.0); MEAN CORPUSCULAR HGB CONC 33.7 g/dl (32.0-36.5); MEAN CORPUSCULAR VOLUME 94.3 fl (80.0-96.0); MONO # 0.5 K/mm3 (0.0-0.8); NEUTROPHILS # 8.9 K/mm3 (1.8-7.7); NEUTROPHILS % 84.1 % (36.0-66.0); PLATELET COUNT, AUTOMATED 201 k/mm3 (150-450); RED CELL DISTRIBUTION WIDTH 13.1 % (11.5-14.5); WHITE BLOOD COUNT 10.6 K/mm3 (4.0-10.0)
[2016-08-27 06:42] LABS: CALCIUM LEVEL 8.1 MG/DL (8.8-10.2); CREATININE FOR GFR 1.28 MG/DL (0.70-1.30); GLOMERULAR FILTRATION RATE 56.3 (>35); POTASSIUM SERUM 3.8 MEQ/L (3.5-5.1)
--- NOTE | 2016-08-27 07:32 | IPNPDOC ---
Subjective Date Seen The patient was seen on 08/27/16. Subjective Chief Complaint/HPI The patient is a 89-year-old male admitted with a reason for visit of A-Fib, Hernia,Inguinal,Bilateral Recurrent,Obstruct. Events since last encounter Developed HCAP pneumonia. Treated with Pip/sheng IV q 6 hrs. NGT placed with large output 2 days ago. Now with soft abdomen. patient expressing frustration over NGT and difficulty coughing. Refusing nebs due to cough which causes pain due to NGT. Constitutional: Denies: Chills, Fever, Night Sweats ENT: Denies: Head Aches, Ear Pain, Dysphagia Skin: Denies: Rash, Lesions, Breakdown Pulmonary: Reports: Cough, Denies: Pleuritic Chest Pain Cardiovascular: Denies: Chest Pain, Palpitations, Orthopnea, Paroxysmal Noc. Dyspnea, Lt Headedness Gastrointestinal: Reports: Other Symptoms (NGT: clamped), Denies: Nausea, Vomiting, Abdominal Pain, Diarrhea, Constipation Genitourinary: Denies: Dysuria, Frequency, Incontinence, Retention Psych: Reports: Other Psych (frustration, angry regarding hospitalization. ) Objective Physical Examination General Exam: Positive: Alert, No Acute Distress ENT Exam: Positive: Atraumatic, Mucous membr. moist/pink, Pharynx Normal Neck Exam: Positive: Supple, Negative: JVD, thyromegaly Chest Exam: Positive: Clear to auscultation, Normal air movement Heart Exam: Positive: Rate Normal, Irregular Rhythm Abdomen Exam: Positive: BS Hypoactive, Soft, Tenderness (Right abdomen and pelvis, improved) Extremity Exam: Positive: Normal pulses, Negative: Clubbing, Cyanosis, Edema Skin Exam: Positive: Nl turgor and temperature, Negative: Rash, Breakdown Psych Exam: Positive: Mental status NL, Mood NL, Oriented x 3 Assessment /Plan Problems (1) Hernia, inguinal, bilateral recurrent, with obstruction Status: Acute Problem Specific Plan: Consult Specialist Problem Text: Dr. Dodge attending, managing (2) Pneumonia Problem Text: 08/27/16: Pip/sheng q 6 hrs day #2. Encouraged to use nebs. Encouraged Incentive spirometer and getting OOB. HCAP increase risk for surgery if utilizing general anesthesia. Per surgeon note, plan on Spinal. Plavix held in anticipation of surgery. DVT prophylaxis: SCD/teds. Will treat for an early HCAP with new R sided infiltrate (seen on chest film of abdominal X ray) and patient's spontaneous complaint of cough, productive of sputum. (3) HTN (hypertension) Status: Chronic Response to Treatment: Stable (4) CAD (coronary artery disease) Status: Chronic Response to Treatment: Stable Problem Text: Pradaxa on HOLD. Should hold x 5 days as general anesthesia is not recommended due to recent pulmonary process. Will need spinal anesthesia. Anticipate surgery date at the earliest: 08/27/2016. (5) BPH (benign prostatic hyperplasia) Status: Chronic Response to Treatment: Stable (6) A-fib Status: Chronic Plan/VTE VTE Prophylaxis Ordered?: Yes (HOLDING for surgery: TEDS/SCD) VTE Exclusion Pharmacological: Other (on pradaxa, expected surgery may use spinal ) Plan Attending note: I saw and evaluated the patient, and agree with the plan of care as discussed document by Laure Payne. Alisia Bell MD VS, I&O, 24H, Fishbone Vital Signs/I&O Vital Signs Date Time Temp Pulse Resp B/P (MAP) Pulse Ox O2 Delivery O2 Flow Rate FiO2 08/27/16 06:00 98.4 97 20 123/63 (83) 94 Room Air I&O- Last 24 Hours up to 6 AM 08/27/16 06:00 Intake Total 510 ml Output Total 925 ml Balance -415 ml Laboratory Data 24H LABS Laboratory Tests 2 08/26/16 11:45: Bedside Glucose (Misc Panel) 123H 08/26/16 17:21: Bedside Glucose (Misc Panel) 132H 08/27/16 00:03: Bedside Glucose (Misc Panel) 122H 08/27/16 05:50: Bedside Glucose (Misc Panel) 159H 08/27/16 06:12: White Blood Count 10.6H, Red Blood Count 3.53L, Hemoglobin 11.2L, Hematocrit 33.3L, Mean Corpuscular Volume 94.3, Mean Corpuscular Hemoglobin 31.7, Mean Corpuscular Hemoglobin Concent 33.7, Red Cell Distribution Width 13.1, Platelet Count 201, Neutrophils (%) (Auto) 84.1H, Lymphocytes (%) (Auto) 7.7L, Monocytes (%) (Auto) 5.0, Eosinophils (%) (Auto) 1.7, Basophils (%) (Auto) 0.1, Neutrophils # (Auto) 8.9H, Lymphocytes # (Auto) 1.0L, Monocytes # (Auto) 0.5, Eosinophils # (Auto) 0.2, Basophils # (Auto) 0.0, Large Unclassified Cells % 1.5 , Large Unclassified Cells # 0.2, Anion Gap 8, Glomerular Filtration Rate 56.3, Blood Urea Nitrogen 38H, Creatinine 1.28, Sodium Level 138, Potassium Level 3.8 , Chloride Level 103, Carbon Dioxide Level 27, Calcium Level 8.1L CBC/BMP Laboratory Tests 08/27/16 06:12 Red Blood Count 3.53 L, Mean Corpuscular Volume 94.3, Mean Corpuscular Hemoglobin 31.7, Mean Corpuscular Hemoglobin Concent 33.7, Red Cell Distribution Width 13.1, Neutrophils (%) (Auto) 84.1 H, Lymphocytes (%) (Auto) 7.7 L, Monocytes (%) (Auto) 5.0, Eosinophils (%) (Auto) 1.7, Basophils (%) (Auto ) 0.1, Neutrophils # (Auto) 8.9 H, Lymphocytes # (Auto) 1.0 L, Monocytes # (Auto ) 0.5, Eosinophils # (Auto) 0.2, Basophils # (Auto) 0.0, Calcium Level 8.1 L Microbiology Microbiology 08/23/16 Gram Stain - Final, Complete 08/23/16 Sputum Culture - Final, Complete Escherichia Coli 08/22/16 Urine Culture - Final, Complete Anh Payne August 27, 2016 07:32 ALISIA BELL MD August 28, 2016 16:47
[2016-08-27] MEDS: SENOKOT S TAB PO SCH ×2 (09:00→20:21)
[2016-08-27] MEDS: PANTOPRAZOLE 40MG INJ (PROTONIX) (C9113) IV SCH (09:34)
[2016-08-27] MEDS: VALSARTAN 80 MG TAB (DIOVAN) PO SCH (09:35)
[2016-08-27] MEDS: SIMVASTATIN 40 MG TAB PO SCH (09:36)
[2016-08-27] MEDS: ATENOLOL 50 MG TAB PO SCH (09:36)
[2016-08-27] MEDS: NITROGLYCERIN 0.4 MG/HR PATCH TD SCH (09:37)
--- NOTE | 2016-08-27 09:49 | REP ---
Clinical: Follow up pneumonia. Comparison: 08/25/2016, 08/24/2016. Findings: Nasogastric tube extends in the left upper quadrant. Left PICC line with tip in the SVC. 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 Evidence for prior cholecystectomy. Mediastinum and cardiac silhouette are within normal limits and stable. Lung nguyen demonstrate diffuse chronic interstitial changes. Subtle atelectasis in the basilar right upper lobe and trace right basilar atelectasis cannot be excluded although findings appear minimally improved compared to 08/25/2016. No obvious effusion. No pneumothorax. Skeletal structures demonstrate stable osteopenia and degenerative changes. Impression: Basilar right upper lobe and right lower lobe atelectasis may be slightly improved compared to prior examination. No new acute process. Signed by Romel Tuttle MD 08/27/2016 09:41 A
[2016-08-27 14:00] VITALS: BP 144/64
[2016-08-27] MEDS ORDERED: HumaLOG INSULIN (NovoLOG) PER UNIT SC SCH (18:00)
[2016-08-27] MEDS ORDERED: MULTIVITAMIN -ADULT INJECTION 10 ML, CR/CU/SE/MN/ZN INJ 1 ML in AMINO AC/ELECTROLYTE/DE... IV SCH (18:00)
[2016-08-27] MEDS ORDERED: FAT EMULSION IV 20% 500 ML IV SCH (18:00)
[2016-08-27] MEDS: **NOTE PATIENT COMMENT** MISC XX SCH (20:21)
[2016-08-27 22:00] VITALS: BP 139/74
[2016-08-28] VITALS (7 sets, daily range): BP systolic 131–170; BP diastolic 69–100
[2016-08-28] MEDS: PIPERACILLIN/TAZOBACTAM SOD 2.25 GM in D5W MINI-BAG PLUS 50 ML IV SCH ×4 (00:14→17:40)
[2016-08-28] MEDS: SODIUM CHLORIDE 0.9% INJ 10 ML SYR IV PRN ×2 (00:14→17:41)
[2016-08-28] MEDS: IPRATROPIUM 0.5MG/ALBUTEROL 2.5MG INH SOL UD 3ML (DUONEB)(J7620) NEB SCH ×4 (02:00→19:32)
[2016-08-28] MEDS: SODIUM CHLORIDE 0.9% INJ 10 ML SYR IV SCH ×2 (05:24→17:41)
[2016-08-28] MEDS: METOCLOPRAMIDE INJ 10MG/2ML VIAL (J2765) IV SCH ×3 (05:24→20:32)
--- NOTE | 2016-08-28 07:39 | IPN ---
DATE OF VISIT: 08/27/2016 SUBJECTIVE: The patient overall had an nasogastric (NG) tube placed and since having the NG tube placed had significant bowel movements yesterday and continues to have more bowel movements today. He is not having any fevers or chills. No nausea, no vomiting. His NG tube still is putting out a fair bit of fluid at this point. He does have some adequate urine output at this time as well. His white count did increase slightly today to 10.6 but otherwise has been good. His sputum had some Escherichia coli (E. coli) which is sensitive to the antibiotics we currently have him on. He has been afebrile. PHYSICAL EXAMINATION: ABDOMEN: His abdomen is soft, nondistended, nontender. He has the large bilateral inguinal hernias present. EXTREMITIES: Warm, well-perfused. IMPRESSION AND PLAN: The patient has bilateral inguinal hernias with obstructive looking appearance. I have discussed the issue with medicine and feel that I would like them to optimize his respiratory issues, specifically he had an infiltrate that was appreciated on a (kidneys, ureters and bladder (KUB) over the weekend and this would also be suggested that this was a pneumonia and I would like him to be optimized from this standpoint if he clinically is better from a "possible pneumonia" and thus, at this point, I will plan on operative intervention for him tomorrow with an open bilateral inguinal hernia repair. The plan would be to repair these under spinal anesthetic. The patient agrees to this and would like to proceed with this as soon as possible tomorrow. The risks as well as benefits have been discussed with him at length was including but not limited to infection, bleeding, damage to surrounding structures including bowel, bladder, nerve vessels and possible recurrence of the hernia. Specifically with him, his incidence of postoperative seroma fluid collection is very high, as well as his postoperative infection rate is slightly higher than average given his malnutrition and his recurrence rate is significantly higher given the overall size of these hernias. In addition it does appear that the bowel obstruction is associated with the inguinal hernias but there may be other etiology for this that is undetermined at this time. We will plan on operative intervention given the symptomatic inguinal hernias and I anticipate we will be able to discontinue his NG tube and progress his diet thereafter.
--- NOTE | 2016-08-28 07:50 | IPNPDOC ---
Subjective Date Seen The patient was seen on 08/28/16. Subjective Chief Complaint/HPI The patient is a 89-year-old male admitted with a reason for visit of A-Fib, Hernia,Inguinal,Bilateral Recurrent,Obstruct. Events since last encounter Noting improvement in cough and SOB with use of Incentive Spirometer routinely. c/o soreness to gluteral fold and rectum due to multiple stools and sitting for prolonged times. Nursing is applying barrier cream. No open areas noted. Eyes: Denies: Pain, Vision change Pulmonary: Denies: Dyspnea, Cough Cardiovascular: Denies: Chest Pain, Palpitations, Orthopnea, Paroxysmal Noc. Dyspnea, Lt Headedness Gastrointestinal: Denies: Nausea, Vomiting, Abdominal Pain, Diarrhea, Constipation Genitourinary: Denies: Dysuria, Frequency, Incontinence, Retention Psych: Reports: Mood Normal, Denies: Depression, Memory Issues Objective Physical Examination General Exam: Positive: Alert, No Acute Distress ENT Exam: Positive: Atraumatic, Mucous membr. moist/pink, Pharynx Normal Neck Exam: Positive: Supple, Negative: JVD, thyromegaly Chest Exam: Positive: Clear to auscultation, Normal air movement, Wheezing Heart Exam: Positive: Rate Normal, Irregular Rhythm Abdomen Exam: Positive: BS Hypoactive, Soft, Tenderness (Right abdomen and pelvis, improved) Extremity Exam: Positive: Normal pulses, Negative: Clubbing, Cyanosis, Edema Skin Exam: Positive: Nl turgor and temperature, Breakdown (gluteal folds, rectum), Negative: Rash Psych Exam: Positive: Mental status NL, Mood NL, Oriented x 3 Assessment /Plan Problems (1) Hernia, inguinal, bilateral recurrent, with obstruction Status: Acute Problem Specific Plan: Consult Specialist Problem Text: Dr. Dodge attending, managing (2) Pneumonia Problem Text: 08/28/2016: Pip/Sheng #3.. Continue with nebs. has some wheezing, will add on Solumedrol. 08/27/16: Pip/sheng q 6 hrs day #2. Encouraged to use nebs. Encouraged Incentive spirometer and getting OOB. HCAP increase risk for surgery if utilizing general anesthesia. Per surgeon note, plan on Spinal. Plavix held in anticipation of surgery. DVT prophylaxis: SCD/teds. Will treat for an early HCAP with new R sided infiltrate (seen on chest film of abdominal X ray) and patient's spontaneous complaint of cough, productive of sputum. (3) HTN (hypertension) Status: Chronic Response to Treatment: Stable (4) CAD (coronary artery disease) Status: Chronic Response to Treatment: Stable Problem Text: Pradaxa on HOLD. Should hold x 5 days as general anesthesia is not recommended due to recent pulmonary process. Will need spinal anesthesia. Anticipate surgery date at the earliest: 08/27/2016. (5) BPH (benign prostatic hyperplasia) Status: Chronic Response to Treatment: Stable (6) A-fib Status: Chronic (7) Excoriation of buttock Status: Acute Problem Text: barrier cream with zinc and routine position change advised Plan/VTE VTE Prophylaxis Ordered?: Yes (HOLDING for surgery: TEDS/SCD) VTE Exclusion Pharmacological: Other (on pradaxa, expected surgery may use spinal ) Plan Attending note: I saw and evaluated the patient, and agree with the plan of care as discussed and documented by Laure Payne. Patient is doing well postop. Pain is controlled. Passing flatus. Alisia Bell MD VS, I&O, 24H, [facility] Vital Signs/I&O Vital Signs Date Time Temp Pulse Resp B/P (MAP) Pulse Ox O2 Delivery O2 Flow Rate FiO2 08/28/16 06:00 98.7 74 20 131/71 (91) 95 Room Air I&O- Last 24 Hours up to 6 AM 08/28/16 06:00 Intake Total 1695 ml Output Total 820 ml Balance 875 ml Laboratory Data 24H LABS Laboratory Tests 2 08/27/16 11:54: Bedside Glucose (Misc Panel) 114H 08/27/16 16:43: Bedside Glucose (Misc Panel) 131H Microbiology Microbiology 08/26/16 Gram Stain - Final, Resulted 08/26/16 Sputum Culture, Resulted Pending 08/23/16 Gram Stain - Final, Complete 08/23/16 Sputum Culture - Final, Complete Escherichia Coli 08/22/16 Urine Culture - Final, Complete Anh Payne DIRECTOR OF PATIENT FINANCIAL SERVICES August 28, 2016 07:50 ALISIA BELL MD August 28, 2016 16:48
[2016-08-28] MEDS: SIMVASTATIN 40 MG TAB PO SCH ×2 (08:14→08:32)
[2016-08-28] MEDS: PANTOPRAZOLE 40MG INJ (PROTONIX) (C9113) IV SCH (08:14)
[2016-08-28] MEDS: ATENOLOL 50 MG TAB PO SCH ×3 (08:15→15:20)
[2016-08-28] MEDS: SENOKOT S TAB PO SCH ×2 (08:15→20:32)
[2016-08-28] MEDS: VALSARTAN 80 MG TAB (DIOVAN) PO SCH ×3 (08:15→15:21)
[2016-08-28] MEDS: methylPREDNISolone INJ 125 MG/2 ML VIAL (J2930) IV SCH ×2 (08:16→20:32)
[2016-08-28] MEDS: NITROGLYCERIN 0.4 MG/HR PATCH TD SCH (08:16)
[2016-08-28] MEDS ORDERED: LIDOCAINE 2% INJ 100 MG/5 ML SDV (FOR ANES.) As Ordered ONE (08:57)
[2016-08-28] MEDS ORDERED: PROPOFOL 200 MG/20 ML VIAL As Ordered ONE (08:57)
[2016-08-28] MEDS ORDERED: MIDAZOLAM INJ 2 MG/2 ML VIAL (J2250) As Ordered ONE (08:57)
[2016-08-28] MEDS ORDERED: fentaNYL 100 MCG/2 ML INJECTION (J3010) As Ordered ONE ×2 (08:57→13:46)
[2016-08-28] MEDS ORDERED: BUPIVACAINE/EPIN 0.25% 30 ML VIAL As Ordered ONE (10:12)
[2016-08-28] MEDS ORDERED: LABETALOL HCL 100 MG/20 ML VIAL As Ordered ONE (13:40)
[2016-08-28] MEDS ORDERED: ONDANSETRON 4MG/2ML VIAL (J2405) As Ordered ONE (13:40)
[2016-08-28] MEDS: fentaNYL 100 MCG/2 ML INJECTION (J3010) IV PRN ×5 (13:55→15:15)
[2016-08-28] MEDS ORDERED: HYDROmorphone HCL 1 MG/ML SYRINGE (J1170) IV PRN (14:45)
[2016-08-28] MEDS ORDERED: LR 1,000 ML IV SCH (14:45)
[2016-08-28] MEDS ORDERED: ONDANSETRON 4MG/2ML VIAL (J2405) IV PRN (14:45)
[2016-08-28] MEDS: NORCO, ANEXSIA 5/325MG TABLET (HYDROcodone/ACETAMINOPHEN) PO PRN (17:40)
[2016-08-28] MEDS: **NOTE PATIENT COMMENT** MISC XX SCH (20:32)
[2016-08-29] MEDS: PIPERACILLIN/TAZOBACTAM SOD 2.25 GM in D5W MINI-BAG PLUS 50 ML IV SCH ×4 (00:03→18:16)
[2016-08-29] MEDS: SODIUM CHLORIDE 0.9% INJ 10 ML SYR IV PRN ×2 (01:24→20:30)
[2016-08-29 02:00] VITALS: BP 164/73
[2016-08-29] MEDS: METOCLOPRAMIDE INJ 10MG/2ML VIAL (J2765) IV SCH ×3 (05:46→20:29)
[2016-08-29] MEDS: SODIUM CHLORIDE 0.9% INJ 10 ML SYR IV SCH ×2 (05:47→18:16)
[2016-08-29 06:00] VITALS: BP 128/80
[2016-08-29] MEDS: IPRATROPIUM 0.5MG/ALBUTEROL 2.5MG INH SOL UD 3ML (DUONEB)(J7620) NEB SCH ×3 (08:00→20:00)
[2016-08-29] MEDS: SENOKOT S TAB PO SCH ×2 (08:25→19:37)
[2016-08-29] MEDS: methylPREDNISolone INJ 125 MG/2 ML VIAL (J2930) IV SCH ×2 (08:54→20:29)
[2016-08-29] MEDS: PANTOPRAZOLE 40MG INJ (PROTONIX) (C9113) IV SCH (08:54)
[2016-08-29] MEDS: ATENOLOL 50 MG TAB PO SCH (08:54)
[2016-08-29] MEDS: VALSARTAN 80 MG TAB (DIOVAN) PO SCH (08:55)
[2016-08-29] MEDS: CLOPIDOGREL 75 MG TAB PO SCH (08:55)
[2016-08-29] MEDS: SIMVASTATIN 40 MG TAB PO SCH (08:55)
[2016-08-29 10:00] VITALS: BP 133/83
[2016-08-29] MEDS: NITROGLYCERIN 0.4 MG/HR PATCH TD SCH (10:49)
[2016-08-29 14:00] VITALS: BP 152/80
[2016-08-29] MEDS: **NOTE PATIENT COMMENT** MISC XX SCH (20:29)
[2016-08-29 22:00] VITALS: BP 141/80
[2016-08-30] MEDS: SODIUM CHLORIDE 0.9% INJ 10 ML SYR IV PRN ×2 (00:17→20:32)
[2016-08-30] MEDS: PIPERACILLIN/TAZOBACTAM SOD 2.25 GM in D5W MINI-BAG PLUS 50 ML IV SCH ×2 (00:17→05:22)
[2016-08-30] MEDS: IPRATROPIUM 0.5MG/ALBUTEROL 2.5MG INH SOL UD 3ML (DUONEB)(J7620) NEB SCH ×4 (01:45→20:00)
[2016-08-30 02:00] VITALS: BP 128/73
[2016-08-30] MEDS: METOCLOPRAMIDE INJ 10MG/2ML VIAL (J2765) IV SCH ×3 (05:22→20:31)
[2016-08-30] MEDS: SODIUM CHLORIDE 0.9% INJ 10 ML SYR IV SCH ×2 (05:23→17:30)
[2016-08-30 05:46] LABS: BASO % 0.1 % (0.0-1.0); EOS % 0.1 % (0.0-3.0); LARGE UNSTAINED CELL # 0.1 K/mm3 (0.0-0.4); LARGE UNSTAINED CELL % 0.6 % (0.0-4.0); LYMPH # 0.7 K/mm3 (1.5-4.5); LYMPH % 6.2 % (24.0-44.0); MEAN CORPUSCULAR HEMOGLOBIN 30.9 pg (27.0-33.0); MEAN CORPUSCULAR HGB CONC 32.8 g/dl (32.0-36.5); MEAN CORPUSCULAR VOLUME 94.1 fl (80.0-96.0); MONO # 0.5 K/mm3 (0.0-0.8); MONO % 4.3 % (0.0-5.0); NEUTROPHILS # 9.7 K/mm3 (1.8-7.7); NEUTROPHILS % 88.8 % (36.0-66.0); PLATELET COUNT, AUTOMATED 241 k/mm3 (150-450); RED CELL DISTRIBUTION WIDTH 13.3 % (11.5-14.5); WHITE BLOOD COUNT 10.9 K/mm3 (4.0-10.0)
[2016-08-30 06:00] VITALS: BP 134/63
[2016-08-30 06:05] LABS: ALKALINE PHOSPHATASE 80 U/L (45-117); ALT/SGPT 54 U/L (12-78); ANION GAP 10 MEQ/L (8-16); AST/SGOT 68 U/L (15-37); BILIRUBIN,TOTAL 0.4 MG/DL (0.2-1.0); BLOOD UREA NITROGEN 32 MG/DL (7-18); CALCIUM LEVEL 8.2 MG/DL (8.8-10.2); CARBON DIOXIDE LEVEL 26 MEQ/L (21-32); CHLORIDE LEVEL 104 MEQ/L (98-107); CREATININE FOR GFR 1.19 MG/DL (0.70-1.30); GLOMERULAR FILTRATION RATE > 60.0 (>35); GLUCOSE, FASTING 121 MG/DL (83-110); POTASSIUM SERUM 4.3 MEQ/L (3.5-5.1); SODIUM LEVEL 140 MEQ/L (136-145)
[2016-08-30 06:06] LABS: ALBUMIN 2.4 GM/DL (3.2-5.2); ALBUMIN/GLOBULIN RATIO 0.73 (1.00-1.93); TOTAL PROTEIN 5.7 GM/DL (6.4-8.2)
--- NOTE | 2016-08-30 08:31 | IPNPDOC ---
Subjective Date Seen The patient was seen on 08/30/16. Subjective Chief Complaint/HPI The patient is a 89-year-old male admitted with a reason for visit of A-Fib, Hernia,Inguinal,Bilateral Recurrent,Obstruct. Events since last encounter Feeling well. denies c/o. OOB with walker. Requesting Mars to be DCd. Constitutional: Denies: Chills, Fever, Night Sweats ENT: Denies: Head Aches, Ear Pain, Dysphagia Skin: Denies: Rash, Lesions, Breakdown Pulmonary: Denies: Dyspnea, Cough Cardiovascular: Denies: Chest Pain, Palpitations, Orthopnea, Paroxysmal Noc. Dyspnea, Lt Headedness Gastrointestinal: Denies: Nausea, Vomiting, Abdominal Pain, Diarrhea, Constipation Psych: Reports: Mood Normal, Denies: Depression, Memory Issues Objective Physical Examination General Exam: Positive: Alert, No Acute Distress ENT Exam: Positive: Atraumatic, Mucous membr. moist/pink, Pharynx Normal Neck Exam: Positive: Supple, Negative: JVD, thyromegaly Chest Exam: Positive: Clear to auscultation, Normal air movement, Wheezing Heart Exam: Positive: Rate Normal, Irregular Rhythm Abdomen Exam: Positive: BS Hypoactive, Soft, Tenderness (Right abdomen and pelvis, improved) Extremity Exam: Positive: Normal pulses, Negative: Clubbing, Cyanosis, Edema Skin Exam: Positive: Nl turgor and temperature, Breakdown (gluteal folds, rectum), Negative: Rash Psych Exam: Positive: Mental status NL, Mood NL, Oriented x 3 Assessment /Plan Problems (1) Hernia, inguinal, bilateral recurrent, with obstruction Status: Acute Problem Specific Plan: Consult Specialist Problem Text: Dr. Dodge attending, managing (2) Pneumonia Problem Text: 08/30/2016: lungs are clear, CXR with improvement. Significant improvement since surgery. Using incentive spirometer. changes to po prednisone. Zosyn DCd. Change to po Levaquin based on sputum cx. 08/28/2016: Pip/Sheng #3.. Continue with nebs. has some wheezing, will add on Solumedrol. 08/27/16: Pip/sheng q 6 hrs day #2. Encouraged to use nebs. Encouraged Incentive spirometer and getting OOB. HCAP increase risk for surgery if utilizing general anesthesia. Per surgeon note, plan on Spinal. Plavix held in anticipation of surgery. DVT prophylaxis: SCD/teds. Will treat for an early HCAP with new R sided infiltrate (seen on chest film of abdominal X ray) and patient's spontaneous complaint of cough, productive of sputum. (3) HTN (hypertension) Status: Chronic Response to Treatment: Stable (4) CAD (coronary artery disease) Status: Chronic Response to Treatment: Stable Problem Text: Pradaxa on HOLD. Should hold x 5 days as general anesthesia is not recommended due to recent pulmonary process. Will need spinal anesthesia. Anticipate surgery date at the earliest: 08/27/2016. (5) BPH (benign prostatic hyperplasia) Status: Chronic Response to Treatment: Stable (6) A-fib Status: Chronic (7) Excoriation of buttock Status: Acute Problem Text: barrier cream with zinc and routine position change advised Plan/VTE VTE Prophylaxis Ordered?: Yes (HOLDING for surgery: TEDS/SCD) VTE Exclusion Pharmacological: Other (on pradaxa, expected surgery may use spinal ) Plan/Urinary Catheter Reason for insertion/continuin: Perioperative VS, I&O, 24H, Fishbone Vital Signs/I&O Vital Signs Date Time Temp Pulse Resp B/P (MAP) Pulse Ox O2 Delivery O2 Flow Rate FiO2 08/30/16 06:00 98.4 85 16 134/63 (86) 94 Room Air 08/28/16 17:40 1.0 I&O- Last 24 Hours up to 6 AM 08/30/16 06:00 Intake Total 2450 ml Output Total 1350 ml Balance 1100 ml Laboratory Data 24H LABS Laboratory Tests 2 08/30/16 05:29: White Blood Count 10.9H, Red Blood Count 3.53L, Hemoglobin 10.9L, Hematocrit 33.2L, Mean Corpuscular Volume 94.1, Mean Corpuscular Hemoglobin 30.9, Mean Corpuscular Hemoglobin Concent 32.8, Red Cell Distribution Width 13.3, Platelet Count 241, Neutrophils (%) (Auto) 88.8H, Lymphocytes (%) (Auto) 6.2L, Monocytes (%) (Auto) 4.3, Eosinophils (%) (Auto) 0.1, Basophils (%) (Auto) 0.1, Neutrophils # (Auto) 9.7H, Lymphocytes # (Auto) 0.7L, Monocytes # (Auto) 0.5, Eosinophils # (Auto) 0.0, Basophils # (Auto) 0.0, Large Unclassified Cells % 0.6 , Large Unclassified Cells # 0.1, Anion Gap 10, Glomerular Filtration Rate > 60.0, Blood Urea Nitrogen 32H, Creatinine 1.19, Sodium Level 140, Potassium Level 4.3, Chloride Level 104, Carbon Dioxide Level 26, Calcium Level 8.2L, Aspartate Amino Transf (AST/SGOT) 68H, Alanine Aminotransferase (ALT/SGPT) 54, Alkaline Phosphatase 80, Total Bilirubin 0.4, Total Protein 5.7L, Albumin 2.4L, Albumin/Globulin Ratio 0.73L CBC/BMP Laboratory Tests 08/30/16 05:29 Red Blood Count 3.53 L, Mean Corpuscular Volume 94.1, Mean Corpuscular Hemoglobin 30.9, Mean Corpuscular Hemoglobin Concent 32.8, Red Cell Distribution Width 13.3, Neutrophils (%) (Auto) 88.8 H, Lymphocytes (%) (Auto) 6.2 L, Monocytes (%) (Auto) 4.3, Eosinophils (%) (Auto) 0.1, Basophils (%) (Auto ) 0.1, Neutrophils # (Auto) 9.7 H, Lymphocytes # (Auto) 0.7 L, Monocytes # (Auto ) 0.5, Eosinophils # (Auto) 0.0, Basophils # (Auto) 0.0, Calcium Level 8.2 L, Aspartate Amino Transf (AST/SGOT) 68 H, Alanine Aminotransferase (ALT/SGPT) 54, Alkaline Phosphatase 80, Total Bilirubin 0.4, Total Protein 5.7 L, Albumin 2.4 L Microbiology Microbiology 08/26/16 Gram Stain - Final, Complete 08/26/16 Sputum Culture - Final, Complete Escherichia Coli 08/23/16 Gram Stain - Final, Complete 08/23/16 Sputum Culture - Final, Complete Escherichia Coli 08/22/16 Urine Culture - Final, Complete Anh Payne August 30, 2016 08:31
[2016-08-30] MEDS: SENOKOT S TAB PO SCH ×2 (09:00→20:31)
[2016-08-30] MEDS ORDERED: predniSONE 20 MG TAB PO SCH (09:00)
[2016-08-30] MEDS: PANTOPRAZOLE 40MG INJ (PROTONIX) (C9113) IV SCH (09:57)
[2016-08-30] MEDS: NITROGLYCERIN 0.4 MG/HR PATCH TD SCH (09:57)
[2016-08-30] MEDS: ATENOLOL 50 MG TAB PO SCH (09:57)
[2016-08-30] MEDS: CLOPIDOGREL 75 MG TAB PO SCH (09:57)
[2016-08-30] MEDS: VALSARTAN 80 MG TAB (DIOVAN) PO SCH (09:57)
[2016-08-30] MEDS: SIMVASTATIN 40 MG TAB PO SCH (09:58)
[2016-08-30 10:00] VITALS: BP 129/90
[2016-08-30 14:00] VITALS: BP 143/68
[2016-08-30 18:00] VITALS: BP 140/64
[2016-08-30] MEDS: **NOTE PATIENT COMMENT** MISC XX SCH (20:31)
[2016-08-30 22:00] VITALS: BP 127/65
[2016-08-31] MEDS: IPRATROPIUM 0.5MG/ALBUTEROL 2.5MG INH SOL UD 3ML (DUONEB)(J7620) NEB SCH ×2 (01:23→07:44)
[2016-08-31 02:00] VITALS: BP 117/65
[2016-08-31] MEDS: METOCLOPRAMIDE INJ 10MG/2ML VIAL (J2765) IV SCH (05:07)
[2016-08-31] MEDS: SODIUM CHLORIDE 0.9% INJ 10 ML SYR IV SCH (05:07)
[2016-08-31] MEDS: SODIUM CHLORIDE 0.9% INJ 10 ML SYR IV PRN (05:08)
[2016-08-31 05:30] LABS: BASO % 0.1 % (0.0-1.0); EOS % 0.2 % (0.0-3.0); LARGE UNSTAINED CELL # 0.1 K/mm3 (0.0-0.4); LARGE UNSTAINED CELL % 1.2 % (0.0-4.0); LYMPH # 1.9 K/mm3 (1.5-4.5); MEAN CORPUSCULAR HEMOGLOBIN 30.9 pg (27.0-33.0); MEAN CORPUSCULAR VOLUME 96.3 fl (80.0-96.0); MONO # 0.8 K/mm3 (0.0-0.8); MONO % 6.8 % (0.0-5.0); NEUTROPHILS # 8.8 K/mm3 (1.8-7.7); NEUTROPHILS % 75.8 % (36.0-66.0); PLATELET COUNT, AUTOMATED 324 k/mm3 (150-450); RED CELL DISTRIBUTION WIDTH 12.9 % (11.5-14.5); WHITE BLOOD COUNT 11.6 K/mm3 (4.0-10.0)
[2016-08-31 06:00] VITALS: BP 128/60
[2016-08-31] MEDS ORDERED: LevoFLOXacin 250 MG TABLET PO SCH (06:00)
[2016-08-31 06:02] LABS: ALBUMIN 2.6 GM/DL (3.2-5.2); ALBUMIN/GLOBULIN RATIO 0.7 (1.00-1.93); BILIRUBIN,TOTAL 0.4 MG/DL (0.2-1.0); CALCIUM LEVEL 8.4 MG/DL (8.8-10.2); CREATININE FOR GFR 1.25 MG/DL (0.70-1.30); GLOMERULAR FILTRATION RATE 57.9 (>35); TOTAL PROTEIN 6.3 GM/DL (6.4-8.2)
[2016-08-31] MEDS: SIMVASTATIN 40 MG TAB PO SCH (08:49)
[2016-08-31] MEDS: CLOPIDOGREL 75 MG TAB PO SCH (08:49)
[2016-08-31] MEDS: PANTOPRAZOLE 40MG INJ (PROTONIX) (C9113) IV SCH (08:49)
[2016-08-31] MEDS: NITROGLYCERIN 0.4 MG/HR PATCH TD SCH (08:49)
[2016-08-31] MEDS: SENOKOT S TAB PO SCH (08:50)
[2016-08-31] MEDS: ATENOLOL 50 MG TAB PO SCH (08:50)
[2016-08-31] MEDS ORDERED: predniSONE 20 MG TAB PO SCH (09:00)
[2016-08-31 10:00] VITALS: BP 121/65
[2016-08-31 10:08] VITALS: BP 128/60
[2016-08-31] MEDS: VALSARTAN 80 MG TAB (DIOVAN) PO SCH (10:08)
[2016-08-31] MEDS ORDERED: LEVA250T PO (10:51)
[2016-08-31] MEDS ORDERED: PRED20TA PO (10:51)
--- NOTE | 2016-08-31 14:22 | IPNPDOC ---
Subjective Date Seen The patient was seen on 08/31/16. Subjective Chief Complaint/HPI The patient is a 89-year-old male admitted with a reason for visit of A-Fib, Hernia,Inguinal,Bilateral Recurrent,Obstruct. Events since last encounter Patient is doing well today. Tolerating a full diet. Pain is controlled. Passing gas, and having stools. Surgery plans to discharge today. Patient plans to follow up outpatient with Dr. Norman. Constitutional: Denies: Chills, Fever, Malaise Gastrointestinal: Denies: Nausea, Vomiting, Abdominal Pain, Diarrhea, Constipation Other systems 10 point review systems otherwise negative Objective Physical Examination General Exam: Positive: Alert, No Acute Distress ENT Exam: Positive: Atraumatic, Mucous membr. moist/pink Neck Exam: Negative: JVD, thyromegaly Chest Exam: Positive: Clear to auscultation, Normal air movement, Negative: Rales, Rhonchi, Wheezing Heart Exam: Positive: Rate Normal, Irregular Rhythm Abdomen Exam: Positive: Normal bowel sounds, Soft, Negative: Tenderness Extremity Exam: Positive: Normal pulses, Negative: Clubbing, Cyanosis, Edema Skin Exam: Positive: Nl turgor and temperature, Negative: Rash Psych Exam: Positive: Mental status NL, Mood NL, Oriented x 3 Assessment /Plan Problems (1) Hernia, inguinal, bilateral recurrent, with obstruction Status: Acute Problem Specific Plan: Consult Specialist Problem Text: Dr. Dodge attending, managing. Patient will discharge home today. (2) Pneumonia Problem Text: Patient is discharged on by mouth Levaquin for remainder of course. Breathing well on room air. He will follow-up with Dr. Norman. (3) HTN (hypertension) Status: Chronic Response to Treatment: Stable (4) CAD (coronary artery disease) Status: Chronic Response to Treatment: Stable Problem Text: Pradaxa to be resumed at discharge (5) BPH (benign prostatic hyperplasia) Status: Chronic Response to Treatment: Stable (6) A-fib Status: Chronic (7) Excoriation of buttock Status: Acute Problem Text: barrier cream with zinc and routine position change advised Plan/VTE VTE Prophylaxis Ordered?: Yes (HOLDING for surgery: TEDS/SCD) VTE Exclusion Pharmacological: Other (on pradaxa, expected surgery may use spinal ) Plan/Urinary Catheter Reason for insertion/continuin: Perioperative VS, I&O, 24H, Fishbone Vital Signs/I&O Vital Signs Date Time Temp Pulse Resp B/P (MAP) Pulse Ox O2 Delivery O2 Flow Rate FiO2 08/31/16 10:08 128/60 08/31/16 10:00 98.1 63 18 97 Room Air 08/28/16 17:40 1.0 I&O- Last 24 Hours up to 6 AM 08/31/16 06:00 Intake Total 1850 ml Output Total 300 ml Balance 1550 ml Laboratory Data 24H LABS Laboratory Tests 2 08/31/16 05:16: White Blood Count 11.6H, Red Blood Count 3.69L, Hemoglobin 11.4L, Hematocrit 35.6L, Mean Corpuscular Volume 96.3H, Mean Corpuscular Hemoglobin 30.9, Mean Corpuscular Hemoglobin Concent 32.0, Red Cell Distribution Width 12.9, Platelet Count 324, Neutrophils (%) (Auto) 75.8H, Lymphocytes (%) (Auto) 16.0L, Monocytes (%) (Auto) 6.8H, Eosinophils (%) (Auto) 0.2, Basophils (%) (Auto) 0.1 , Neutrophils # (Auto) 8.8H, Lymphocytes # (Auto) 1.9, Monocytes # (Auto) 0.8, Eosinophils # (Auto) 0.0, Basophils # (Auto) 0.0, Large Unclassified Cells % 1.2 , Large Unclassified Cells # 0.1, Anion Gap 7L, Glomerular Filtration Rate 57.9 , Blood Urea Nitrogen 34H, Creatinine 1.25, Sodium Level 141, Potassium Level 4.0, Chloride Level 107, Carbon Dioxide Level 27, Calcium Level 8.4L, Aspartate Amino Transf (AST/SGOT) 82H, Alanine Aminotransferase (ALT/SGPT) 73, Alkaline Phosphatase 78, Total Bilirubin 0.4, Total Protein 6.3L, Albumin 2.6L, Albumin/ Globulin Ratio 0.70L CBC/BMP Laboratory Tests 08/31/16 05:16 Red Blood Count 3.69 L, Mean Corpuscular Volume 96.3 H, Mean Corpuscular Hemoglobin 30.9, Mean Corpuscular Hemoglobin Concent 32.0, Red Cell Distribution Width 12.9, Neutrophils (%) (Auto) 75.8 H, Lymphocytes (%) (Auto) 16.0 L, Monocytes (%) (Auto) 6.8 H, Eosinophils (%) (Auto) 0.2, Basophils (%) ( Auto) 0.1, Neutrophils # (Auto) 8.8 H, Lymphocytes # (Auto) 1.9, Monocytes # ( Auto) 0.8, Eosinophils # (Auto) 0.0, Basophils # (Auto) 0.0, Calcium Level 8.4 L , Aspartate Amino Transf (AST/SGOT) 82 H, Alanine Aminotransferase (ALT/SGPT) 73 , Alkaline Phosphatase 78, Total Bilirubin 0.4, Total Protein 6.3 L, Albumin 2.6 L Microbiology Microbiology 08/26/16 Gram Stain - Final, Complete 08/26/16 Sputum Culture - Final, Complete Escherichia Coli 08/23/16 Gram Stain - Final, Complete 08/23/16 Sputum Culture - Final, Complete Escherichia Coli 08/22/16 Urine Culture - Final, Complete ALISIA BELL MD August 31, 2016 14:22
--- NOTE | 2016-09-05 17:08 | DSES ---
DATE OF ADMISSION: 08/21/2016 DATE OF DISCHARGE: 08/31/2016 PRINCIPAL DIAGNOSIS: Incarcerated bilateral inguinal hernias. ASSOCIATED DIAGNOSIS: Pneumonia, possible aspiration pneumonia. BRIEF HISTORY OF PRESENT ILLNESS: Patient is an 89-year-old male who presents to the emergency room with abdominal pain and evidence of small bowel obstruction. Given his significant comorbidities he had been recently admitted to the hospital with this small bowel obstruction and was kept nothing by mouth and nasogastric (NG) tube and resolved his bowel obstruction. He was discharged to home and returns in a short course with reevaluation/recurrence of his incarceration of his inguinal hernias. HOSPITAL COURSE SUMMARY: The patient was admitted with the above diagnosis but unfortunately, given that he was on anticoagulation and cardiology felt that he would do best with a spinal anesthetic instead of a general anesthetic, we were able to place an NG tube and have him decompress and it improved his bowel obstruction issue. He started having bowel movements and some diarrheal bowel movements. He unfortunately did well enough that we removed his NG tube but then developed recurrence of his pain and discomfort and had some nausea and vomiting. He had his NG tube replaced again and had an elevated white count and on evaluation with chest xray with a productive sputum was felt to have a possible pneumonia. He was started on antibiotics and had some significant improvement of abdominal pain, etc., and was taken to the operating room once we felt the Xarelto was "out of his system." The patient had bilateral inguinal hernias repaired and tolerated this quite well. Afterwards, he was starting to ambulate in the hallway. He passed his home safety evaluation and was discharged to home. MEDICATIONS: At the time of discharge, include the following: - atenolol - vitamin D - Pradaxa - Senokot - multivitamins - nitroglycerin - omeprazole - Osteo Bi-Flex - simvastatin - Diovan He was also continued from a medicine standpoint for his pneumonia on Levaquin and a prednisone taper. He was to followup in my office in 1-2 weeks for staple removal and 2-3 weeks for reevaluation.
--- NOTE | 2016-09-05 17:35 | RO ---
DATE OF PROCEDURE: 08/29/2016 PREOPERATIVE DIAGNOSIS: Bilateral inguinal hernias (incarcerated). POSTOPERATIVE DIAGNOSIS: Bilateral inguinal hernias (incarcerated). PROCEDURE: Bilateral repair of bilateral inguinal hernias with mesh. SURGEON: Dr. Pola Dodge CARD ROOM MANAGER: Dr. Wright (Dr. Wright provided retraction, exposure, and assisted with reduction of the hernias. ANESTHESIA: Spinal anesthesia. ESTIMATED BLOOD LOSS: 50 mL. FLUIDS: Crystalloid . PROCEDURE SUMMARY: Patient was brought to the operating room and was given spinal anesthetic. After adequate anesthesia and preoperative antibiotics were given the patient was prepped and draped in the usual sterile fashion. Next, the patient was placed in steep Trendelenburg position and the left inguinal hernia was able to be reduced rather easily compared to the right inguinal hernia but the left inguinal hernia was reduced and then a the left inguinal incision was made with a skin knife. Electrocautery was used cut through dermis, underlying subcutaneous tissue down to the external oblique muscle fibers which were opened sharply and then opened up through the external ring using electrocautery. Next , the external oblique was mobilized both superiorly and inferiorly and the port structures as well as the hernia sac was mobilized off the pubis and strain was placed around this. The hernia sac was visualized quite nicely at this point and using a combination of blunt and sharp dissection this was mobilized off surrounding structures as well as off the cord structures itself. Once it was mobilized all the way to the level of the internal ring, the hernia sac was entered. Once the hernia sac was entered there was obvious colon that was adherent to the hernia sac wall which was taken down sharply and with minimal electrocautery as well and eventually this was continued to be mobilized all the way such that the bowel was returned to the abdominal cavity and then the base of the hernia sac was suture ligated with heavy Vicryl suture. Once this was replaced the floor the canal as well as the internal ring revealed a relatively large fascial defect. Thus, the canal was brought together with some #2-0 PDS to bring the medial aspect of the internal obliques to the transversus abdominis muscle / inguinal ligament laterally. Once this was performed and the internal ring was adequately decreased in size and all mesh was cut to the appropriate size and then stapled with a secure strap on the pubis medially along the internal obliques. Laterally this was sutured in place with PDS in an interrupted manner. All the way to where the tails were lateral to the cord structures. These tails were brought together with PDS. Next, the fascial defect was adequate in size / the internal ring was adequate in size. Thus the external oblique was closed with running #2-0 PDS over this. Bob's was closed with #2-0 Vicryl and #3-0 Vicryl was used to approximate the dermis and surjit were used to approximate the skin. The right inguinal area was repaired in much the same manner. Once again the right inguinal hernia was much more difficult to reduce once it was reduced however. The right inguinal incision was made with skin knife. Electrocautery was used cut through dermis, underlying subcutaneous tissue down through Bob's down to the external obliques. Muscle fibers which were opened sharply and then the cord and its contents and the hernia sac were mobilized off the pubis. [place] drain was placed around this. The hernia sac was seen, lysed off the surrounding structures and eventually lysed all the way to the internal ring. This did not have as much adherent bowel within it itself, but eventually this was able to be mobilized quite nicely and then suture ligated at its base with #2-0 Vicryl suture. Next, there was and an additional hernia present and this was preperitoneal fat that when the patient was coughing came out lateral to the internal ring and given that this was preperitoneal fat and was not a true hernia sac itself, I then placed this back into the preperitoneal space. However, the fascial defect at the internal ring was so large on this side that I placed a PerFix plug and then sutured it along the internal oblique medially and the transversus and inguinal ligament lateral and superiorly. Once this was in place then an UltraPro was and placed after the transverse abdominis muscle was imbricated using some #2-0 Vicryl. The culture probe mesh was tacked into place on the medial aspect of the internal oblique as well as the pubis and the inguinal ligament was sewn to the mesh in this area on the lateral aspect with #2-0 PDS and the tails of the mesh were brought together with secure strap as well. Once the mesh was in place external oblique was closed with #2-0 Vicryl #3-0 Vicryl was used to approximate Bob's and dermis and surjit were used to approximate the skin. Dry sterile dressing was applied. The patient was awakened, and then brought to the recovery room awake, alert, hemodynamically stable. Sponge and needle counts correct time two. MTDD
== END 2016-08-31 13:03 | disposition home or self-care (01) | DRG 350 ==
LOC: M ED 13:09 → M ED INP 16:39 → M MSPAV 18:01
PROVIDERS: ADMIT Surgery; ATTEND Surgery
PROC: 0YQA0ZZ Repair Bilateral Inguinal Region, Open Approach (ICD-10-PCS; principal; 2016-08-29)
DX: K40.01 Bilateral inguinal hernia, with obstruction, without gangrene, recurrent (principal); J18.9 Pneumonia, unspecified organism; Z79.899 Other long term (current) drug therapy; I25.10 Atherosclerotic heart disease of native coronary artery without angina pectoris; I48.91 Unspecified atrial fibrillation; N40.0 Benign prostatic hyperplasia without lower urinary tract symptoms; E78.5 Hyperlipidemia, unspecified; I10 Essential (primary) hypertension; Z87.891 Personal history of nicotine dependence; K21.9 Gastro-esophageal reflux disease without esophagitis; M19.90 Unspecified osteoarthritis, unspecified site; E87.6 Hypokalemia

== ENCOUNTER → 2017-01-28 | Outpatient (CLI) | payer OTHER ==
[~2017-01-28] MED LIST changes: +FERR1TAB8 PO; -FERR325T PO; +LEVA1TAB PO; +MIRA33504 PO; +PRED20TA PO; +SENN8.6T54 PO
[2017-01-28 09:28] LABS: BASO # 0.1 10^3/uL (0.0-0.2); BASO % 0.9 % (0.0-1.0); EOS # 0.1 10^3/uL (0.0-0.50); EOS % 1.4 % (0.0-3.0); IMMATURE GRANULOCYTE % 0.2 % (0-0); LYMPH # 1.5 10^3/uL (1.5-4.5); LYMPH % 26.5 % (24.0-44.0); MEAN CORPUSCULAR HEMOGLOBIN 29.9 pg (27.0-33.0); MEAN CORPUSCULAR HGB CONC 31.5 g/dl (32.0-36.5); MEAN CORPUSCULAR VOLUME 95.1 fl (80.0-96.0); MONO # 0.7 10^3/uL (0.0-0.8); MONO % 11.6 % (0.0-5.0); NEUTROPHILS # 3.3 10^3/uL (1.8-7.7); NEUTROPHILS % 59.4 % (36.0-66.0); PLATELET COUNT, AUTOMATED 164 10^3/uL (150-450); RED CELL DISTRIBUTION WIDTH 13.5 % (11.5-14.5); WHITE BLOOD COUNT 5.6 10^3/uL (4.0-10.0)
[2017-01-28 09:43] LABS: ALBUMIN 3.6 GM/DL (3.2-5.2); ALBUMIN/GLOBULIN RATIO 1.2 (1.00-1.93); BILIRUBIN,TOTAL 0.7 MG/DL (0.2-1.0); CALCIUM LEVEL 7.8 MG/DL (8.8-10.2); CREATININE FOR GFR 1.38 MG/DL (0.70-1.30); GLOMERULAR FILTRATION RATE 51.6 (>35); TOTAL PROTEIN 6.6 GM/DL (6.4-8.2)
== END ==
LOC: M WUC 08:06
PROVIDERS: ATTEND Nurse Practitioner Family
DX: E78.2 Mixed hyperlipidemia (principal); I10 Essential (primary) hypertension; D63.1 Anemia in chronic kidney disease

== ENCOUNTER → 2017-05-28 | Outpatient (CLI) | payer OTHER | LOC: M RAD 13:19 | DX: N26.9 Renal sclerosis, unspecified (principal); N28.1 Cyst of kidney, acquired | CPT/HCPCS: 76775 ==